=== PATIENT | male | born 1960 | race Caucasian/White ===

== ENCOUNTER 2020-02-17 08:14 | Inpatient (IN) | payer MEDICAID ==
[~2020-02-17] VITALS: Ht 170.2 cm; Wt 66.5 kg
[~2020-02-17 08:14] MED LIST: BARIUM SULFATE/METHYLCELLULOSE 600 ML SUSPENSION BOTTLE**DONT ENTER PO ONE; etomidate 2mg/ml inj. ONE
[2020-02-17] MEDS ORDERED: CefTRIAXone/D5W-Rocephin 1gm 50 ML IV ONE (09:20)
[2020-02-17] MEDS ORDERED: fluconazole 150mg tablet PO ONE (09:20)
[2020-02-17 09:46] LABS: BASOPHILS # (AUTO) 0.1 X10'3 (0-0.2); BASOPHILS % (AUTO) 0.8 % (0-1); EOSINOPHILS # (AUTO) 0.1 X10'3 (0-0.9); EOSINOPHILS % (AUTO) 1.5 % (0-6); HEMOGLOBIN 10.9 g/dl (14.0-17.9); LYMPHOCYTES # (AUTO) 2.1 X10'3 (1.1-4.8); LYMPHOCYTES % (AUTO) 22.4 % (21-51); MEAN CORPUSCULAR HEMOGLOBIN 29.2 PG (27.0-31.0); MEAN CORPUSCULAR HGB CONC 33.1 g/dL (33.0-36.5); MEAN CORPUSCULAR VOLUME 88.3 FL (78-98); MONOCYTES # (AUTO) 0.8 X10'3 (0-0.9); MONOCYTES % (AUTO) 8.5 % (2-12); NEUTROPHILS # (AUTO) 6.3 X10'3 (1.8-7.7); NEUTROPHILS % (AUTO) 66.8 % (42-75); PLATELET COUNT 512 X10'3 (140-440); RED BLOOD COUNT 3.74 X10'6 (4.70-6.10); RED CELL DISTRIBUTION WIDTH 17.1 % (11.5-14.5); WHITE BLOOD COUNT 9.4 X10'3 (4.5-11.0)
[2020-02-17] MEDS ORDERED: HYDROcodone/acetaminophen 10/325mg tab PO ONE (10:00)
[2020-02-17 10:02] LABS: ALANINE AMINOTRANSFERASE 40 U/L (12-78); ALBUMIN 4.2 G/DL (3.4-5.0); ALKALINE PHOSPHATASE 121 IU/L (46-116); ANION GAP 9 (8-16); ASPARTATE AMINO TRANSFERASE 30 U/L (10-37); BILIRUBIN,TOTAL 0.3 MG/DL (0.1-1.0); BLOOD UREA NITROGEN 60 MG/DL (7-18); CALCIUM 10.8 MG/DL (8.5-10.1); CHLORIDE 91 MMOL/L (99-107); GLUCOSE 113 MG/DL (70-104); POTASSIUM 5.2 MMOL/L (3.5-5.1); SODIUM 123 MMOL/L (135-145); TOTAL CARBON DIOXIDE 23.1 MMOL/L (24-32); TOTAL PROTEIN 8.4 G/DL (6.4-8.2); eGFR 35 ML/MIN
[2020-02-17] MEDS: nystatin/triamcinolone cream 15gm TP SCH ×3 (10:10→21:00)
[2020-02-17] MEDS ORDERED: acetaminophen 325mg tablet PO PRN ×2 (11:15)
[2020-02-17] MEDS ORDERED: magnesium 2GM in 50ml NS 50 ML IV PRN (11:15)
[2020-02-17] MEDS ORDERED: HYDROcodone/acetaminophen 5mg/325mg tablet PO PRN (11:15)
[2020-02-17] MEDS ORDERED: magnesium Cl slow-release 64mg tablet PO PRN (11:15)
[2020-02-17] MEDS ORDERED: potassium Cl 20 mEq SR tablet PO PRN ×2 (11:15)
[2020-02-17] MEDS ORDERED: magnesium hydroxide 30ml (MOM) UD suspension PO PRN (11:15)
[2020-02-17] MEDS ORDERED: magnesium 4gm in 100ml NS 100 ML IV PRN (11:15)
[2020-02-17] MEDS ORDERED: potassium CL 10mEq/100ml bag 100 ML IV PRN ×2 (11:15)
[2020-02-17] MEDS ORDERED: morphine 2 MG/ML inj. syringe IV PRN (11:15)
[2020-02-17] MEDS ORDERED: HYDROcodone/acetaminophen 10/325mg tab PO PRN (11:15)
[2020-02-17] MEDS ORDERED: ondansetron/PF 4mg/2ml inj IV PRN (11:15)
[2020-02-17] MEDS ORDERED: bisacodyl 10mg suppository rectal RC PRN (11:15)
[2020-02-17] MEDS ORDERED: mag hydrox/Alum hydrox/simeth 30ml oral suspension PO PRN (11:15)
[2020-02-17] MEDS ORDERED: diphenhydrAMINE 25mg capsule PO PRN (11:15)
[2020-02-17] MEDS ORDERED: acetaminophen 650mg rectal suppository RC PRN (11:15)
[2020-02-17] MEDS: piperacillin/tazo 3.375gm/50ml 50 ML IV SCH ×2 (11:47→16:23)
[2020-02-17] MEDS: normal saline 1000ml 1,000 ML IV SCH ×2 (11:47→20:47)
[2020-02-17 11:52] LABS: HEMOGLOBIN A1C 6.1 % (4.5-6.2)
[2020-02-17] MEDS ORDERED: VITA-268 PO (12:56)
[2020-02-17] MEDS ORDERED: NITR0.4T48 SL (12:56)
[2020-02-17] MEDS ORDERED: CLOP75TA33 PO (12:56)
[2020-02-17] MEDS ORDERED: LISI-604 PO (12:56)
[2020-02-17] MEDS ORDERED: ASPI-107 PO (12:56)
[2020-02-17] MEDS ORDERED: CARV6.253 PO (12:56)
[2020-02-17] MEDS ORDERED: ATOR40TA71 PO (12:56)
[2020-02-17] MEDS ORDERED: OXYC-145 PO (13:11)
[2020-02-17] MEDS ORDERED: MIDO5TAB4 PO (13:11)
--- NOTE | 2020-02-17 13:33 | NUR ---
tried to call report to surgical, rn stated that room wasnt cleaned and they would call back, they said they could not take report until room was cleaned
--- NOTE | 2020-02-17 13:55 | NUR ---
Gave report to Kim Eastman and still waiting for room to be cleaned
--- NOTE | 2020-02-17 14:21 | NUR ---
AJ COMPLETED MED REC
[2020-02-17] MEDS: morphine 2 MG/ML inj. syringe IV PRN ×2 (15:19→20:33)
--- NOTE | 2020-02-17 15:26 | NUR ---
PAGER ID: [phone] MESSAGE: Surgical Braxtonr Geraldo RN ext [phone]. RE: Gualberto Arnold. Patient requesting Dilaudid IV for pain as Morphine don't work well for him. Wound care nurse at bedside asking if we can get Lidocaine topical for wound care
[2020-02-17] MEDS ORDERED: LIDOcaine 4% (40 mg/ml) topical solution 50ml TP PRN (15:30)
[2020-02-17] MEDS: vancomycin/NS 1 GM ADD-VANTAGE 250 ML X 1 DOSE IV SCH (16:23)
[2020-02-17 17:14] VITALS: BP 97/62
--- NOTE | 2020-02-17 18:30 | NUR ---
Patient in room LEAH 347. I have received report from MARK MAYS and had the opportunity to ask questions and assume patient care.
[2020-02-17 20:00] VITALS: BP 143/75
[2020-02-17] MEDS: K and/or MAG REPLACEMENT MC SCH (20:00)
[2020-02-17] MEDS: heparin, porcine 5000 units/ml vial SQ SCH (20:38)
[2020-02-18] VITALS: BP 105/62
[2020-02-18] MEDS: piperacillin/tazo 3.375gm/50ml 50 ML IV SCH ×3 (00:36→16:38)
[2020-02-18] MEDS: normal saline 1000ml 1,000 ML IV SCH ×2 (04:01→16:38)
[2020-02-18] MEDS: morphine 2 MG/ML inj. syringe IV PRN (05:20)
[2020-02-18 06:01] LABS: ALANINE AMINOTRANSFERASE 42 U/L (12-78); ALBUMIN 3.4 G/DL (3.4-5.0); ALBUMIN/GLOBULIN RATIO 0.9 (1.1-1.5); ALKALINE PHOSPHATASE 109 IU/L (46-116); ANION GAP 11 (8-16); ASPARTATE AMINO TRANSFERASE 33 U/L (10-37); BILIRUBIN,TOTAL 0.4 MG/DL (0.1-1.0); BLOOD UREA NITROGEN 46 MG/DL (7-18); CALCIUM 9.9 MG/DL (8.5-10.1); CHLORIDE 97 MMOL/L (99-107); CHOL/HDL RATIO 2.5 (0.00-4.99); CHOLESTEROL 88 MG/DL (0-200); CREATININE 1.64 MG/DL (0.60-1.10); GLUCOSE 92 MG/DL (70-104); HDL CHOLESTEROL 35 MG/DL (35-60); LDL CHOLESTEROL 37 MG/DL (50-100); MAGNESIUM 1.6 MG/DL (1.5-2.4); PHOSPHORUS 4.4 MG/DL (2.3-4.5); SODIUM 129 MMOL/L (135-145); TOTAL CARBON DIOXIDE 21.1 MMOL/L (24-32); TOTAL PROTEIN 7.2 G/DL (6.4-8.2); TRIGLYCERIDES 129 MG/DL (20-135); eGFR 44 ML/MIN
[2020-02-18 06:15] LABS: BASOPHILS # (AUTO) 0.1 X10'3 (0-0.2); EOSINOPHILS # (AUTO) 0.3 X10'3 (0-0.9); EOSINOPHILS % (AUTO) 4.4 % (0-6); HEMATOCRIT 32.5 % (42.0-52.0); HEMOGLOBIN 10.8 g/dl (14.0-17.9); LYMPHOCYTES # (AUTO) 2.6 X10'3 (1.1-4.8); LYMPHOCYTES % (AUTO) 33.8 % (21-51); MEAN CORPUSCULAR HEMOGLOBIN 30.2 PG (27.0-31.0); MEAN CORPUSCULAR HGB CONC 33.4 g/dL (33.0-36.5); MEAN CORPUSCULAR VOLUME 90.2 FL (78-98); MEAN PLATELET VOLUME 7.1 FL (7.4-10.4); MONOCYTES # (AUTO) 0.9 X10'3 (0-0.9); MONOCYTES % (AUTO) 11.4 % (2-12); NEUTROPHILS # (AUTO) 3.7 X10'3 (1.8-7.7); NEUTROPHILS % (AUTO) 49.4 % (42-75); PLATELET COUNT 420 X10'3 (140-440); RED CELL DISTRIBUTION WIDTH 17.7 % (11.5-14.5); WHITE BLOOD COUNT 7.6 X10'3 (4.5-11.0)
--- NOTE | 2020-02-18 06:29 | NUR ---
Problems reprioritized. Patient report given, questions answered & plan of care reviewed with MARK MAYS.
--- NOTE | 2020-02-18 06:32 | NUR ---
Patient in room LEAH 347. I have received report from Prabha MAYS and had the opportunity to ask questions and assume patient care.
[2020-02-18 07:00] VITALS: BP 105/65
--- NOTE | 2020-02-18 07:47 | NUR ---
I called Dr. El to ask if patient can be fed today. Dr. El ordered clear liquid diet and Gastrograffin enema to be done at Radiology department. Radiology staff notified about this, the public address technician and radiologist not be able to do it right away. Radiology staff also advised me to go ahead give patient clear liquid diet as the procedure will be delayed for a while until the tech and radiologist are able to do it. I told patient that the Gastrograffin will not get done immediately as we have to wait for the entry tech and radiology doctor to be available to do it, I offered clear liquid diet for breakfast but patient declined it. Patient states "I would rather wait for the test to get done. Patient expressed frustration over being NPO after midnight and now only allowed to have clear liquid diet instead of solid food.
[2020-02-18] MEDS: K and/or MAG REPLACEMENT MC SCH ×2 (08:00→20:00)
[2020-02-18] MEDS: nystatin/triamcinolone cream 15gm TP SCH ×3 (08:00→21:00)
[2020-02-18] MEDS: heparin, porcine 5000 units/ml vial SQ SCH ×2 (08:54→20:13)
[2020-02-18] MEDS ORDERED: fluconazole 100mg tablet PO SCH (08:55)
[2020-02-18] MEDS ORDERED: oxyCODONE/APAP 5-325mg tablet PO PRN (09:05)
[2020-02-18 09:31] LABS: BURR CELLS 1+; ELLIPTOCYTES FEW
[2020-02-18 09:33] LABS: PLATELET ESTIMATE NORMAL; SCHISTOCYTES FEW
[2020-02-18 09:34] LABS: ANISOCYTOSIS 1+; POIKILOCYTOSIS FEW
[2020-02-18] MEDS ORDERED: pantoprazole 40 MG vial IV ONE ×2 (10:05→21:50)
[2020-02-18] MEDS: oxyCODONE/APAP 10/325mg tablet PO PRN ×2 (10:12→19:35)
[2020-02-18 11:00] VITALS: BP 118/65
[2020-02-18] MEDS: fluconazole 100mg tablet PO SCH (11:27)
[2020-02-18] MEDS ORDERED: diatrozoate meglu/diatrozoate sod (37% iodine) 120ML oral solution ONE (12:00)
[2020-02-18] MEDS: vancomycin/NS 1 GM ADD-VANTAGE 250 ML X 1 DOSE IV SCH (12:51)
[2020-02-18 14:47] VITALS: BP 111/72
[2020-02-18] MEDS: midodrine 5mg tablet PO SCH (16:43)
--- NOTE | 2020-02-18 16:43 | NUR ---
Malnutrition consult: Pt seen at bedside reports UBW 130 lbs with wt loss occurring once ostomy was placed in the beginning of November of this year d/t decreased appetite resulting in poor PO intake secondary to increased pain. Pt states he didn't have sufficient pain control post-op as his pain medications weren't being absorbed. Current documented scaled weight is 113 lbs. This is severe wt loss of 13% in three months. Pt with mild visible bilat temporal wasting. Pt currently meets criteria for malnutrition. Pt provided with malnutrition education with ONS coupons. 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 Pt admit for infection surrounding ostomy, pending possible reversal. Pt inquired about diet following possible reversal. RD provided verbal low fiber nutrition therapy education with a written list of fiber content in food. All of patient's questions were answered at this time. Pt requesting Ensure with meals, d/w RN. Pt expressed anger about meal trays received and having a heart healthy diet order. RD validated patient's concerns and informed pt that diet order is per physician. Patient's concerns were also d/w patient's RN. Pt provided with RD contact information. Will remain available. Recommendations: 1) Continue regular diet 2) Diet change to low fiber post-op if to get ostomy reversal 3) [place] Ensure Enlive TID, dislikes chocolate 4) [place] food preferences: dislikes cream of wheat 5) Bowel care PRN 6) Scaled weights per rx Addendum: 02/18/20 at [address] Amended: Links added.
--- NOTE | 2020-02-18 16:59 | NUR ---
Per patient report, his last drink of alcohol was 1 year ago
[2020-02-18 18:00] VITALS: BP 110/74
[2020-02-18] MEDS: lactose-reduced food (Ensure Enlive) - 237ml bottle PO SCH (18:00)
--- NOTE | 2020-02-18 18:26 | NUR ---
Problems reprioritized. Patient report given, questions answered & plan of care reviewed with Tal MAYS.
--- NOTE | 2020-02-18 18:48 | NUR ---
I have received report from TABATHA Chow and had the opportunity to ask questions and assume patient care.
[2020-02-18] MEDS: carvedilol 6.25mg tablet PO SCH (20:00)
[2020-02-18] MEDS: lactobacillus rhamnosus 10,000 MMU CELLS/CAPSULE PO SCH (20:16)
--- NOTE | 2020-02-18 20:22 | NUR ---
Evening dose of carvedilol not given due to a BP of 92/57.
[2020-02-19] VITALS (15 sets, daily range): BP systolic 80–185; BP diastolic 50–84
[2020-02-19] MEDS: midodrine 5mg tablet PO SCH ×3 (00:16→16:00)
[2020-02-19] MEDS: piperacillin/tazo 3.375gm/50ml 50 ML IV SCH ×3 (00:19→16:39)
[2020-02-19] MEDS: normal saline 1000ml 1,000 ML IV SCH ×3 (02:25→19:33)
[2020-02-19] MEDS: oxyCODONE/APAP 10/325mg tablet PO PRN (02:47)
[2020-02-19 05:56] LABS: BASOPHILS # (AUTO) 0.1 X10'3 (0-0.2); EOSINOPHILS # (AUTO) 0.3 X10'3 (0-0.9); EOSINOPHILS % (AUTO) 4.8 % (0-6); HEMATOCRIT 28.5 % (42.0-52.0); HEMOGLOBIN 9.5 g/dl (14.0-17.9); LYMPHOCYTES # (AUTO) 2.7 X10'3 (1.1-4.8); LYMPHOCYTES % (AUTO) 38.6 % (21-51); MEAN CORPUSCULAR HEMOGLOBIN 30.1 PG (27.0-31.0); MEAN CORPUSCULAR HGB CONC 33.2 g/dL (33.0-36.5); MEAN CORPUSCULAR VOLUME 90.6 FL (78-98); MEAN PLATELET VOLUME 7.2 FL (7.4-10.4); MONOCYTES # (AUTO) 0.9 X10'3 (0-0.9); MONOCYTES % (AUTO) 13.2 % (2-12); NEUTROPHILS # (AUTO) 2.9 X10'3 (1.8-7.7); NEUTROPHILS % (AUTO) 42.4 % (42-75); PLATELET COUNT 397 X10'3 (140-440); RED BLOOD COUNT 3.15 X10'6 (4.70-6.10); RED CELL DISTRIBUTION WIDTH 16.8 % (11.5-14.5); WHITE BLOOD COUNT 6.9 X10'3 (4.5-11.0)
--- NOTE | 2020-02-19 05:56 | NUR ---
I agree with Ynes Corbett [facility] LEE student documentation, and assessment.
--- NOTE | 2020-02-19 06:30 | NUR ---
Patient in room LEAH 344. I have received report from Tal MAYS/Aric ROMERO and had the opportunity to ask questions and assume patient care.
--- NOTE | 2020-02-19 06:31 | NUR ---
Problems reprioritized. Patient report given, questions answered & plan of care reviewed with TABATHA Daiz.
[2020-02-19 06:33] LABS: ALANINE AMINOTRANSFERASE 35 U/L (12-78); ALBUMIN/GLOBULIN RATIO 0.9 (1.1-1.5); ALKALINE PHOSPHATASE 101 IU/L (46-116); ANION GAP 10 (8-16); ASPARTATE AMINO TRANSFERASE 26 U/L (10-37); BILIRUBIN,TOTAL 0.2 MG/DL (0.1-1.0); BLOOD UREA NITROGEN 27 MG/DL (7-18); BUN/CREATININE RATIO 16.5 (5.4-32.0); CALCIUM 9.3 MG/DL (8.5-10.1); CHLORIDE 104 MMOL/L (99-107); CREATININE 1.64 MG/DL (0.60-1.10); GLUCOSE 121 MG/DL (70-104); MAGNESIUM 1.4 MG/DL (1.5-2.4); PHOSPHORUS 3.3 MG/DL (2.3-4.5); POTASSIUM 4.1 MMOL/L (3.5-5.1); SODIUM 134 MMOL/L (135-145); TOTAL CARBON DIOXIDE 20.4 MMOL/L (24-32); TOTAL PROTEIN 6.5 G/DL (6.4-8.2); eGFR 44 ML/MIN
--- NOTE | 2020-02-19 06:34 | NUR ---
Report given with LEE Corbett to TABATHA Diaz.
[2020-02-19] MEDS: pantoprazole 40 MG vial IV SCH ×2 (08:00→09:42)
[2020-02-19] MEDS: K and/or MAG REPLACEMENT MC SCH ×2 (08:00→20:00)
[2020-02-19] MEDS: clopidogrel 75mg tablet PO SCH (08:00)
[2020-02-19] MEDS: heparin, porcine 5000 units/ml vial SQ SCH ×2 (08:00→21:42)
[2020-02-19] MEDS: carvedilol 6.25mg tablet PO SCH ×2 (08:00→21:41)
[2020-02-19] MEDS: aspirin 81mg tablet.DR PO SCH (08:00)
[2020-02-19] MEDS: lisinopril 5mg tablet PO SCH (08:00)
[2020-02-19] MEDS: lactose-reduced food (Ensure Enlive) - 237ml bottle PO SCH ×3 (08:21→19:45)
[2020-02-19] MEDS ORDERED: HYDROmorphone inj. 0.5 MG/0.5 ML DISP.SYRIN IM ONE (09:20)
[2020-02-19] MEDS: lactobacillus rhamnosus 10,000 MMU CELLS/CAPSULE PO SCH ×2 (09:40→21:41)
[2020-02-19] MEDS: vitamin B comp w/Vit. C tab 1 TAB TABLET PO SCH (09:40)
[2020-02-19] MEDS: atorvastatin 20mg tablet PO SCH (09:41)
[2020-02-19] MEDS ORDERED: HYDROmorphone inj. 0.5 MG/0.5 ML DISP.SYRIN IV ONE (09:45)
[2020-02-19] MEDS: fluconazole 100mg tablet PO SCH (09:49)
[2020-02-19] MEDS: nystatin/triamcinolone cream 15gm TP SCH ×3 (09:51→21:00)
[2020-02-19] MEDS: vancomycin/NS 1 GM ADD-VANTAGE 250 ML X 1 DOSE IV SCH (12:00)
[2020-02-19] MEDS: ringers solution, lacted 1,000 ML IV SCH ×2 (12:34→16:44)
[2020-02-19] MEDS ORDERED: ondansetron/PF 4mg/2ml inj IV PRN (12:35)
[2020-02-19] MEDS ORDERED: morphine 4 MG/ML inj SYRINge IV PRN (12:35)
[2020-02-19] MEDS ORDERED: proCHLORperazine 10 MG/2 ml inj IV PRN (12:35)
[2020-02-19] MEDS ORDERED: meperidine/PF 25mg/ml syringe IV PRN ×2 (12:35)
[2020-02-19] MEDS ORDERED: morphine 2 MG/ML inj. syringe IV PRN (12:35)
[2020-02-19] MEDS ORDERED: midazolam 2 mg/2 ml injection ONE ×3 (12:49→18:30)
[2020-02-19] MEDS ORDERED: fentaNYL /PF 50mcg/ml 5ml ampule ONE (12:49)
[2020-02-19] MEDS ORDERED: propofol inj 20 ML IV ONE (12:49)
[2020-02-19] MEDS ORDERED: rocuronium 10mg/ml inj IV ONE ×2 (12:50→17:53)
[2020-02-19] MEDS ORDERED: sevoflurane 250ml liquid IH ONE (12:54)
--- NOTE | 2020-02-19 12:54 | NUR ---
CALLED REPORT TO RECOVERY AND SENDING VANCO DOWN RIGHT NOW
[2020-02-19] MEDS ORDERED: neostigmine methylsulfate 1 MG/ML 10ml vial ONE (14:21)
[2020-02-19] MEDS ORDERED: glycopyrrolate 0.2mg/ml inj ONE (14:22)
--- NOTE | 2020-02-19 14:24 | NUR ---
Received from OR via SURGICAL BED , accompanied by Anesthesiologist ATIF and report given by Anesthesiolgist. PATIENT WITH LARGE ABDOMINAL DRESSING THAT IS CDI. MEDICATED FOR PAIN UPON ARRIVAL. VSS. PINEDA CATHETER PRESENT AND IS WITH CLEAR YELLOW URINE. SCDS DONNED. 10L MASK ON WITH 100% SATURATIONS. Addendum: 02/19/20 at 1438 by Carlos Rashid RN, RN Amended: Links added.
[2020-02-19] MEDS: meperidine/PF 25mg/ml syringe IV PRN ×2 (14:45→15:04)
[2020-02-19] MEDS ORDERED: naloxone 0.4 mg/ml inj IV PRN (14:50)
[2020-02-19] MEDS ORDERED: CADD PCA waste documentation MC PRN (14:50)
[2020-02-19] MEDS: HYDROmorphone/NS 1 mg/ml CADD 50 ML IV SCH ×5 (15:17→23:00)
--- NOTE | 2020-02-19 15:34 | NUR ---
ALL CRITERIA FOR TRANSFER TO THE FLOOR HAS BEEN ACHIEVED. REPORT GIVEN AND ALL QUESTIONS ANSWERED, VSS. BED LOW 2 RAILS UP, CALL LIGHT PRESENT AND PATIENT HOOKED UP TO ALL LINES AND VSS. PATIENTS RN PRESENT TO ACCEPT CARE. ABDOMINAL DRESSING IS CDI. RN SURINDER PRESENT TO ACCEPT CARE. LABELED DENTURE CUP WITH SINGLE DENTURE PLACED AT BEDSIDE. PATIENT NGT PLACED ON LOW CONTINOUS SUCTION. BP IN 80'S SYSTOLICALLY. NOTIFIED MD SRIVASTAVA THAT PATIENT DRESSING IS CDI. NO S/S OF HEMORRHAGE OR LEAKAGE FROM DRESSING . AWARE THAT PATIENT HAS OCCASIONAL HYPOTENSIVE EPISODES AND IS AWARE OF CURRENT BP AND APPROVES TRANSFER TO THE SURGICAL FLOOR AT THIS TIME. RN SURINDER TO ADMINISTER MEDICATION DUE AT 1600 FOR HYPOTENSION. Addendum: 02/19/20 at 1551 by Carlos Armstrong - TABATHA RN Amended: Links added.
--- NOTE | 2020-02-19 15:45 | NUR ---
Patient in room ICU 2037. I have received report from ELEONORA MAYS and had the opportunity to ask questions and assume patient care.
[2020-02-19] MEDS ORDERED: normal saline 1000ml 1,000 ML IV ONE (16:55)
[2020-02-19] MEDS ORDERED: normal saline 1000ml 1,000 ML IVB ONE (17:08)
[2020-02-19 17:16] LABS: MEAN CORPUSCULAR HEMOGLOBIN 29.1 PG (27.0-31.0); MEAN CORPUSCULAR HGB CONC 31.9 g/dL (33.0-36.5); MEAN CORPUSCULAR VOLUME 91.2 FL (78-98); MEAN PLATELET VOLUME 6.8 FL (7.4-10.4); PLATELET COUNT 350 X10'3 (140-440); RED BLOOD COUNT 2.14 X10'6 (4.70-6.10); WHITE BLOOD COUNT 17.7 X10'3 (4.5-11.0)
[2020-02-19 17:18] LABS: HEMATOCRIT 19.6 % (42.0-52.0)
[2020-02-19 17:19] LABS: HEMOGLOBIN 6.2 g/dl (14.0-17.9)
[2020-02-19 17:21] LABS: ABG BASE EXCESS -9.7 mmol/L (-2.0-2.0); ABG HCO3 16.1 mmol/L (22.0-26.0); ABG PCO2 (T) 34.7 mmHg (35.0-48.0); ABG PO2 (T) 165.7 mmHg (75.0-100.0); ALLEN'S TEST POSITIVE; FCOHb 0.3 % (0.0-3.9); FLOW 4 L/min; FMetHb 0.1 % (0.0-1.5); FO2Hb 98.6 % (94-97); TOTAL HEMOGLOBIN 6.1 G/dl (14.0-18.0)
--- NOTE | 2020-02-19 17:30 | NUR ---
PATIENT RETURNED FROM FROM RECOVERY PATIENT HAD LOW BP BUT NOT OUT OF HIS NORM, BUT PATIENT WAS SLIGHTLY TACHY AN THE 110'S. PATIENT WAS PALE BUT STABLE. AT ABOUT 1655 PHYSICIAN WAS NOTIFIED THAT PATIENT BP DROPPED TO 70'2/40'S AND TACHY IN 140'S PATIENT WAS BOLUSED AND RAPID WAS CALLED. PATIENT TRANSFER TO [facility] [address] HUBER. HOSPITALIST NOTIFIED, AND SURGEON WAS IN ICU UPON ARRIVAL.
[2020-02-19] MEDS ORDERED: vasopressin 40 UNIT in NS 40ml IV DRIP IV SCH (17:35)
[2020-02-19] MEDS: vasopressin inj. 40 UNIT in normal saline 50ml IV soln 38 ML IV SCH (17:36)
[2020-02-19] MEDS ORDERED: midazolam 100mg in NS 100ml 100 ML IV PRN (18:55)
[2020-02-19 19:13] LABS: BASOPHILS % (AUTO) 0.1 % (0-1); EOSINOPHILS % (AUTO) 0.1 % (0-6); HEMATOCRIT 30.9 % (42.0-52.0); HEMOGLOBIN 10.3 g/dl (14.0-17.9); LYMPHOCYTES # (AUTO) 0.8 X10'3 (1.1-4.8); LYMPHOCYTES % (AUTO) 5.5 % (21-51); MEAN CORPUSCULAR HEMOGLOBIN 30.7 PG (27.0-31.0); MEAN CORPUSCULAR HGB CONC 33.2 g/dL (33.0-36.5); MEAN CORPUSCULAR VOLUME 92.4 FL (78-98); MEAN PLATELET VOLUME 6.9 FL (7.4-10.4); MONOCYTES # (AUTO) 1.2 X10'3 (0-0.9); MONOCYTES % (AUTO) 8.7 % (2-12); NEUTROPHILS # (AUTO) 11.9 X10'3 (1.8-7.7); NEUTROPHILS % (AUTO) 85.6 % (42-75); PLATELET COUNT 238 X10'3 (140-440); RED BLOOD COUNT 3.34 X10'6 (4.70-6.10); RED CELL DISTRIBUTION WIDTH 16.3 % (11.5-14.5); WHITE BLOOD COUNT 13.8 X10'3 (4.5-11.0)
--- NOTE | 2020-02-19 19:20 | NUR ---
Received pt from OR to room 2007. report received from Judy MCCULLOUGH and was able to ask questions. Pt placed on CICU monitors, art line zeroed with good waveform, meds infusing through introducer line and PIV. Dressing to abdomen clean, dry, and intact.
[2020-02-19 19:23] LABS: ALANINE AMINOTRANSFERASE 26 U/L (12-78); ALBUMIN 2.3 G/DL (3.4-5.0); ALKALINE PHOSPHATASE 58 IU/L (46-116); ANION GAP 9 (8-16); ASPARTATE AMINO TRANSFERASE 31 U/L (10-37); BILIRUBIN,TOTAL 0.5 MG/DL (0.1-1.0); BLOOD UREA NITROGEN 19 MG/DL (7-18); BUN/CREATININE RATIO 16.2 (5.4-32.0); CALCIUM 7.5 MG/DL (8.5-10.1); CHLORIDE 110 MMOL/L (99-107); CREATININE 1.17 MG/DL (0.60-1.10); GLUCOSE 198 MG/DL (70-104); PHOSPHORUS 3.4 MG/DL (2.3-4.5); SODIUM 137 MMOL/L (135-145); TOTAL CARBON DIOXIDE 18.3 MMOL/L (24-32); TOTAL PROTEIN 4.6 G/DL (6.4-8.2); eGFR 64 ML/MIN
[2020-02-19 19:24] LABS: PARTIAL THROMBOPLASTIN TIME 29 SECONDS (22-32)
[2020-02-19 19:26] LABS: ABG BASE EXCESS -10.2 mmol/L (-2.0-2.0); ABG HCO3 15.9 mmol/L (22.0-26.0); ABG OXYGEN SATURATION 99.3 % (94-97); ABG PCO2 (T) 32.2 mmHg (35.0-48.0); ABG PO2 (T) 361.6 mmHg (75.0-100.0); FCOHb 0.3 % (0.0-3.9); FMetHb 0.2 % (0.0-1.5); FO2Hb 98.8 % (94-97); PATIENT TEMPERATURE 34.6; PEEP 5 cm H2O; RESPIRATORY RATE 12 b/min; TIDAL VOLUME 500 mL; TOTAL HEMOGLOBIN 11.4 G/dl (14.0-18.0)
[2020-02-19 19:33] LABS: POTASSIUM 4.4 MMOL/L (3.5-5.1)
[2020-02-19 19:36] LABS: MAGNESIUM 0.9 MG/DL (1.5-2.4)
[2020-02-19] MEDS: FENTANYL-0.9 % NACL/PF 100 ML IV PRN (19:36)
[2020-02-19] MEDS ORDERED: ipratropium/albuterol 3ml nebule NEB PRN (21:00)
[2020-02-20] VITALS (24 sets, daily range): BP systolic 92–180; BP diastolic 42–78
[2020-02-20] MEDS: midodrine 5mg tablet PO SCH ×3 (00:17→16:00)
[2020-02-20] MEDS: piperacillin/tazo 3.375gm/50ml 50 ML IV SCH ×3 (00:18→16:44)
[2020-02-20] MEDS: HYDROmorphone/NS 1 mg/ml CADD 50 ML IV SCH ×10 (01:00→23:00)
[2020-02-20 03:29] LABS: BASOPHILS % (AUTO) 0.1 % (0-1); EOSINOPHILS % (AUTO) 0.1 % (0-6); HEMOGLOBIN 9.8 g/dl (14.0-17.9); LYMPHOCYTES # (AUTO) 1.2 X10'3 (1.1-4.8); LYMPHOCYTES % (AUTO) 9.8 % (21-51); MEAN CORPUSCULAR HEMOGLOBIN 30.3 PG (27.0-31.0); MEAN CORPUSCULAR HGB CONC 33.9 g/dL (33.0-36.5); MEAN CORPUSCULAR VOLUME 89.4 FL (78-98); MEAN PLATELET VOLUME 7.6 FL (7.4-10.4); MONOCYTES # (AUTO) 1.5 X10'3 (0-0.9); MONOCYTES % (AUTO) 12.7 % (2-12); NEUTROPHILS # (AUTO) 9.3 X10'3 (1.8-7.7); NEUTROPHILS % (AUTO) 77.3 % (42-75); PLATELET COUNT 239 X10'3 (140-440); RED BLOOD COUNT 3.24 X10'6 (4.70-6.10)
[2020-02-20 03:39] LABS: ALANINE AMINOTRANSFERASE 24 U/L (12-78); ALBUMIN 2.4 G/DL (3.4-5.0); ALKALINE PHOSPHATASE 53 IU/L (46-116); ANION GAP 11 (8-16); ASPARTATE AMINO TRANSFERASE 24 U/L (10-37); BILIRUBIN,TOTAL 1.9 MG/DL (0.1-1.0); BLOOD UREA NITROGEN 20 MG/DL (7-18); BUN/CREATININE RATIO 16.9 (5.4-32.0); CALCIUM 7.9 MG/DL (8.5-10.1); CHLORIDE 111 MMOL/L (99-107); CREATININE 1.18 MG/DL (0.60-1.10); GLUCOSE 125 MG/DL (70-104); MAGNESIUM 3.1 MG/DL (1.5-2.4); PHOSPHORUS 2.9 MG/DL (2.3-4.5); POTASSIUM 3.8 MMOL/L (3.5-5.1); SODIUM 140 MMOL/L (135-145); TOTAL CARBON DIOXIDE 17.6 MMOL/L (24-32); TOTAL PROTEIN 4.9 G/DL (6.4-8.2); eGFR 64 ML/MIN
[2020-02-20 03:45] LABS: ABG BASE EXCESS -8.6 mmol/L (-2.0-2.0); ABG HCO3 16.3 mmol/L (22.0-26.0); ABG OXYGEN SATURATION 96.1 % (94-97); ABG PCO2 (T) 32.2 mmHg (35.0-48.0); ABG PO2 (T) 90.5 mmHg (75.0-100.0); FCOHb 0.7 % (0.0-3.9); FMetHb 0.3 % (0.0-1.5); FO2Hb 95.1 % (94-97); PATIENT TEMPERATURE 37.5; PEEP 5 cm H2O; RESPIRATORY RATE 14 b/min; TIDAL VOLUME 500 mL; TOTAL HEMOGLOBIN 10.1 G/dl (14.0-18.0)
[2020-02-20] MEDS: FENTANYL-0.9 % NACL/PF 100 ML IV PRN (06:26)
--- NOTE | 2020-02-20 06:39 | NUR ---
Problems reprioritized. Patient report given, questions answered & plan of care reviewed with Bruce MAYS.
[2020-02-20] MEDS: pantoprazole 40 MG vial IV SCH ×2 (07:10→07:29)
[2020-02-20] MEDS: lisinopril 5mg tablet PO SCH (07:29)
[2020-02-20] MEDS: carvedilol 6.25mg tablet PO SCH ×2 (07:29→19:20)
[2020-02-20] MEDS: atorvastatin 20mg tablet PO SCH (07:29)
[2020-02-20] MEDS: lactobacillus rhamnosus 10,000 MMU CELLS/CAPSULE PO SCH ×2 (07:29→19:20)
[2020-02-20] MEDS: lactose-reduced food (Ensure Enlive) - 237ml bottle PO SCH ×3 (07:30→18:00)
[2020-02-20] MEDS: clopidogrel 75mg tablet PO SCH (07:30)
[2020-02-20] MEDS: aspirin 81mg tablet.DR PO SCH (07:30)
[2020-02-20] MEDS: K and/or MAG REPLACEMENT MC SCH ×2 (07:30→20:00)
[2020-02-20] MEDS: vitamin B comp w/Vit. C tab 1 TAB TABLET PO SCH (07:30)
[2020-02-20] MEDS: nystatin/triamcinolone cream 15gm TP SCH ×3 (07:31→21:00)
[2020-02-20] MEDS: heparin, porcine 5000 units/ml vial SQ SCH ×2 (10:35→19:20)
[2020-02-20] MEDS ORDERED: VANCOMYCIN LEVEL IV ONE (11:30)
[2020-02-20] MEDS ORDERED: racepinephrine 11.25mg/0.5ml nebule NEB PRN (11:50)
[2020-02-20] MEDS ORDERED: ipratropium/albuterol 3ml nebule NEB PRN (11:50)
[2020-02-20] MEDS ORDERED: naloxone 0.4 mg/ml inj IV PRN (11:50)
--- NOTE | 2020-02-20 12:00 | NUR ---
Patient extubated per MD orders. Patient tolerated well on 2L NC
[2020-02-20] MEDS: normal saline 1000ml 1,000 ML IV SCH (13:47)
[2020-02-20] MEDS: vancomycin/NS 1 GM ADD-VANTAGE 250 ML X 1 DOSE IV SCH (13:58)
[2020-02-20] MEDS: ipratropium/albuterol 3ml nebule NEB SCH ×2 (15:22→20:55)
--- NOTE | 2020-02-20 15:31 | NUR ---
RT AT BEDSIDE TO ASK RT INITIAL EVALUATION QUESTIONS, PT REFUSED TO ANSWER QUESTIONS AND DIRECTED ME TO ASK EVERYONE ELSE THAT HAS ASKED HIM ABOUT HIS SMOKING HISTORY. UNABLE TO COMPLETE RT INITIAL EVAL. Addendum: 02/20/20 at 1534 by Preeti Alford RT Amended: Links added.
[2020-02-21] VITALS (30 sets, daily range): BP systolic 115–144; BP diastolic 60–87
[2020-02-21] MEDS: piperacillin/tazo 3.375gm/50ml 50 ML IV SCH ×3 (00:34→16:52)
[2020-02-21] MEDS: HYDROmorphone/NS 1 mg/ml CADD 50 ML IV SCH ×13 (01:00→23:00)
[2020-02-21] MEDS: mineral oil/petrolatum ophthal oint EACHEYE SCH ×3 (01:52→14:00)
[2020-02-21] MEDS: normal saline 1000ml 1,000 ML IV SCH ×3 (03:00→14:18)
[2020-02-21] MEDS: ipratropium/albuterol 3ml nebule NEB SCH ×4 (03:05→20:15)
[2020-02-21 03:13] LABS: BASOPHILS % (AUTO) 0.2 % (0-1); EOSINOPHILS # (AUTO) 0.1 X10'3 (0-0.9); EOSINOPHILS % (AUTO) 0.6 % (0-6); HEMOGLOBIN 7.3 g/dl (14.0-17.9); LYMPHOCYTES # (AUTO) 1.4 X10'3 (1.1-4.8); LYMPHOCYTES % (AUTO) 12.2 % (21-51); MEAN CORPUSCULAR HGB CONC 33.7 g/dL (33.0-36.5); MEAN CORPUSCULAR VOLUME 89.1 FL (78-98); MEAN PLATELET VOLUME 7.5 FL (7.4-10.4); MONOCYTES # (AUTO) 1.9 X10'3 (0-0.9); MONOCYTES % (AUTO) 17.3 % (2-12); NEUTROPHILS # (AUTO) 7.8 X10'3 (1.8-7.7); NEUTROPHILS % (AUTO) 69.7 % (42-75); PLATELET COUNT 205 X10'3 (140-440); RED BLOOD COUNT 2.45 X10'6 (4.70-6.10); RED CELL DISTRIBUTION WIDTH 17.2 % (11.5-14.5); WHITE BLOOD COUNT 11.2 X10'3 (4.5-11.0)
[2020-02-21 03:20] LABS: HEMATOCRIT 21.8 % (42.0-52.0)
[2020-02-21 03:43] LABS: ALANINE AMINOTRANSFERASE 17 U/L (12-78); ALBUMIN/GLOBULIN RATIO 0.7 (1.1-1.5); ALKALINE PHOSPHATASE 48 IU/L (46-116); ANION GAP 9 (8-16); ASPARTATE AMINO TRANSFERASE 20 U/L (10-37); BILIRUBIN,TOTAL 0.7 MG/DL (0.1-1.0); BLOOD UREA NITROGEN 14 MG/DL (7-18); BUN/CREATININE RATIO 11.3 (5.4-32.0); CALCIUM 8.1 MG/DL (8.5-10.1); CHLORIDE 116 MMOL/L (99-107); CREATININE 1.24 MG/DL (0.60-1.10); GLUCOSE 108 MG/DL (70-104); MAGNESIUM 1.9 MG/DL (1.5-2.4); POTASSIUM 3.4 MMOL/L (3.5-5.1); SODIUM 144 MMOL/L (135-145); TOTAL CARBON DIOXIDE 18.8 MMOL/L (24-32); TOTAL PROTEIN 4.8 G/DL (6.4-8.2); eGFR 60 ML/MIN
[2020-02-21 04:06] LABS: BASOPHILS % (AUTO) 0.3 % (0-1); EOSINOPHILS # (AUTO) 0.1 X10'3 (0-0.9); EOSINOPHILS % (AUTO) 0.5 % (0-6); HEMATOCRIT 22.2 % (42.0-52.0); HEMOGLOBIN 7.5 g/dl (14.0-17.9); LYMPHOCYTES # (AUTO) 1.6 X10'3 (1.1-4.8); LYMPHOCYTES % (AUTO) 12.9 % (21-51); MEAN CORPUSCULAR HEMOGLOBIN 30.1 PG (27.0-31.0); MEAN CORPUSCULAR HGB CONC 33.7 g/dL (33.0-36.5); MEAN CORPUSCULAR VOLUME 89.4 FL (78-98); MEAN PLATELET VOLUME 7.4 FL (7.4-10.4); MONOCYTES # (AUTO) 1.9 X10'3 (0-0.9); MONOCYTES % (AUTO) 15.5 % (2-12); NEUTROPHILS # (AUTO) 8.6 X10'3 (1.8-7.7); NEUTROPHILS % (AUTO) 70.8 % (42-75); PLATELET COUNT 211 X10'3 (140-440); RED BLOOD COUNT 2.48 X10'6 (4.70-6.10); RED CELL DISTRIBUTION WIDTH 17.4 % (11.5-14.5); WHITE BLOOD COUNT 12.1 X10'3 (4.5-11.0)
--- NOTE | 2020-02-21 04:21 | NUR ---
Contacted HAKEEM Hudson regarding decreased H & H. Patient condition stable VVS. patients abd dressing dry and intact. Will repeat labs in AM per PA.
[2020-02-21] MEDS: VANCOMYCIN 750MG IV in NS 250 ML IV SCH ×2 (04:26→15:46)
--- NOTE | 2020-02-21 06:46 | NUR ---
Patient in room CICU 2007. I have received report from TABATHA Kirby and had the opportunity to ask questions and assume patient care.
[2020-02-21] MEDS: nystatin/triamcinolone cream 15gm TP SCH ×3 (08:00→21:00)
[2020-02-21] MEDS: pantoprazole 40 MG vial IV SCH ×2 (08:00→08:40)
[2020-02-21] MEDS: lactose-reduced food (Ensure Enlive) - 237ml bottle PO SCH ×3 (08:00→17:21)
[2020-02-21] MEDS: vitamin B comp w/Vit. C tab 1 TAB TABLET PO SCH (08:38)
[2020-02-21] MEDS: midodrine 5mg tablet PO SCH ×3 (08:38→15:46)
[2020-02-21] MEDS: atorvastatin 20mg tablet PO SCH (08:38)
[2020-02-21] MEDS: aspirin 81mg tablet.DR PO SCH (08:39)
[2020-02-21] MEDS: carvedilol 6.25mg tablet PO SCH ×2 (08:39→20:00)
[2020-02-21] MEDS: clopidogrel 75mg tablet PO SCH (08:39)
[2020-02-21] MEDS: lisinopril 5mg tablet PO SCH (08:39)
[2020-02-21] MEDS: heparin, porcine 5000 units/ml vial SQ SCH ×2 (08:40→20:00)
[2020-02-21] MEDS: K and/or MAG REPLACEMENT MC SCH ×2 (08:40→20:00)
[2020-02-21] MEDS: lactobacillus rhamnosus 10,000 MMU CELLS/CAPSULE PO SCH ×2 (08:41→20:00)
--- NOTE | 2020-02-21 09:00 | NUR ---
Critical Hgb 7.0 and Hct 21.0. New orders from Dr. El to infuse 2 units of blood. Will continue to monitor.
[2020-02-21 09:26] LABS: MEAN CORPUSCULAR HGB CONC 33.4 g/dL (33.0-36.5); MEAN CORPUSCULAR VOLUME 89.7 FL (78-98); MEAN PLATELET VOLUME 7.4 FL (7.4-10.4); PLATELET COUNT 201 X10'3 (140-440); RED BLOOD COUNT 2.34 X10'6 (4.70-6.10); RED CELL DISTRIBUTION WIDTH 17.3 % (11.5-14.5); WHITE BLOOD COUNT 11.4 X10'3 (4.5-11.0)
--- NOTE | 2020-02-21 12:03 | NUR ---
Fabián Consult: Fabián 11 w/ abdomen surgical wound. Pt s/p ileostomy reversal and return to OR for post-op hemorrhage per MD. Remains NPO at this time w/ R NG to suction 150ml output noted. 350ml ostomy output 02/18 pre-op. Hx heavy etoh at least a quart daily causing surgical complications on November admit per MS note; receiving B/C vitamin complex post-op. Will monitor for PO diet advancement and additional protein needs post-op. Recommendations: 1) advance diet as medically indicated to low-residue post-op 2) once PO diet advancement; [place] Ensure Enlive TID, dislikes chocolate 3) [place] food preferences once PO: dislikes cream of wheat 4) Bowel care PRN 5) weekly wts Addendum: 02/21/20 at [address] Amended: Links added.
[2020-02-21 17:16] LABS: HEMATOCRIT 27.8 % (42.0-52.0); HEMOGLOBIN 9.5 g/dl (14.0-17.9); MEAN CORPUSCULAR HEMOGLOBIN 30.7 PG (27.0-31.0); MEAN CORPUSCULAR HGB CONC 34.2 g/dL (33.0-36.5); MEAN CORPUSCULAR VOLUME 89.9 FL (78-98); MEAN PLATELET VOLUME 7.3 FL (7.4-10.4); PLATELET COUNT 180 X10'3 (140-440); RED BLOOD COUNT 3.09 X10'6 (4.70-6.10); RED CELL DISTRIBUTION WIDTH 16.3 % (11.5-14.5); WHITE BLOOD COUNT 12.6 X10'3 (4.5-11.0)
[2020-02-21] MEDS: vasopressin inj. 40 UNIT in normal saline 50ml IV soln 38 ML IV SCH (17:20)
[2020-02-22] VITALS (23 sets, daily range): BP systolic 97–149; BP diastolic 62–89
[2020-02-22] MEDS: piperacillin/tazo 3.375gm/50ml 50 ML IV SCH ×3 (00:03→16:25)
[2020-02-22] MEDS: midodrine 5mg tablet PO SCH ×2 (00:03→08:00)
[2020-02-22] MEDS: HYDROmorphone/NS 1 mg/ml CADD 50 ML IV SCH ×12 (01:00→23:00)
[2020-02-22] MEDS: normal saline 1000ml 1,000 ML IV SCH ×3 (01:11→14:36)
[2020-02-22] MEDS: ipratropium/albuterol 3ml nebule NEB SCH ×4 (03:00→20:16)
[2020-02-22] MEDS: VANCOMYCIN 750MG IV in NS 250 ML IV SCH ×2 (04:00→16:25)
[2020-02-22 05:32] LABS: BASOPHILS % (AUTO) 0.2 % (0-1); EOSINOPHILS % (AUTO) 0.1 % (0-6); HEMATOCRIT 27.2 % (42.0-52.0); HEMOGLOBIN 9.3 g/dl (14.0-17.9); LYMPHOCYTES # (AUTO) 1.4 X10'3 (1.1-4.8); LYMPHOCYTES % (AUTO) 12.9 % (21-51); MEAN CORPUSCULAR HEMOGLOBIN 30.5 PG (27.0-31.0); MEAN CORPUSCULAR HGB CONC 34.1 g/dL (33.0-36.5); MEAN CORPUSCULAR VOLUME 89.5 FL (78-98); MEAN PLATELET VOLUME 7.8 FL (7.4-10.4); MONOCYTES # (AUTO) 1.4 X10'3 (0-0.9); MONOCYTES % (AUTO) 12.9 % (2-12); NEUTROPHILS # (AUTO) 8.2 X10'3 (1.8-7.7); NEUTROPHILS % (AUTO) 73.9 % (42-75); PLATELET COUNT 185 X10'3 (140-440); RED BLOOD COUNT 3.04 X10'6 (4.70-6.10); RED CELL DISTRIBUTION WIDTH 16.5 % (11.5-14.5); WHITE BLOOD COUNT 11.1 X10'3 (4.5-11.0)
[2020-02-22 06:09] LABS: ALANINE AMINOTRANSFERASE 18 U/L (12-78); ALBUMIN 2.1 G/DL (3.4-5.0); ALBUMIN/GLOBULIN RATIO 0.7 (1.1-1.5); ALKALINE PHOSPHATASE 72 IU/L (46-116); ANION GAP 13 (8-16); ASPARTATE AMINO TRANSFERASE 25 U/L (10-37); BILIRUBIN,TOTAL 1.3 MG/DL (0.1-1.0); BLOOD UREA NITROGEN 12 MG/DL (7-18); CHLORIDE 116 MMOL/L (99-107); GLUCOSE 93 MG/DL (70-104); MAGNESIUM 1.7 MG/DL (1.5-2.4); POTASSIUM 3.1 MMOL/L (3.5-5.1); SODIUM 148 MMOL/L (135-145); TOTAL CARBON DIOXIDE 18.6 MMOL/L (24-32); TOTAL PROTEIN 5.3 G/DL (6.4-8.2); eGFR 62 ML/MIN
[2020-02-22] MEDS ORDERED: potassium Cl 20 mEq SR tablet PO PRN ×2 (06:55)
[2020-02-22] MEDS: potassium Cl 20mEq/100mL bag 100 ML IV PRN ×2 (07:21→09:48)
[2020-02-22] MEDS: pantoprazole 40 MG vial IV SCH ×2 (07:59→08:00)
[2020-02-22] MEDS: carvedilol 6.25mg tablet PO SCH ×2 (08:00→19:54)
[2020-02-22] MEDS: vitamin B comp w/Vit. C tab 1 TAB TABLET PO SCH (08:00)
[2020-02-22] MEDS: lactobacillus rhamnosus 10,000 MMU CELLS/CAPSULE PO SCH ×2 (08:00→19:54)
[2020-02-22] MEDS: K and/or MAG REPLACEMENT MC SCH ×3 (08:00→19:59)
[2020-02-22] MEDS: aspirin 81mg tablet.DR PO SCH (08:00)
[2020-02-22] MEDS: atorvastatin 20mg tablet PO SCH (08:00)
[2020-02-22] MEDS: lactose-reduced food (Ensure Enlive) - 237ml bottle PO SCH (08:00)
[2020-02-22] MEDS: lisinopril 5mg tablet PO SCH (08:00)
[2020-02-22] MEDS: clopidogrel 75mg tablet PO SCH (08:00)
[2020-02-22] MEDS: nystatin/triamcinolone cream 15gm TP SCH ×3 (08:00→21:57)
[2020-02-22] MEDS: heparin, porcine 5000 units/ml vial SQ SCH ×2 (08:01→19:53)
[2020-02-22] MEDS ORDERED: VANCOMYCIN LEVEL IV ONE (15:30)
[2020-02-22] MEDS: diatr meglu/diatrizoate 30ml oral sol.-(3 dose) bottle PO SCH (21:57)
[2020-02-23] VITALS (23 sets, daily range): BP systolic 119–149; BP diastolic 69–96
[2020-02-23] MEDS: piperacillin/tazo 3.375gm/50ml 50 ML IV SCH ×4 (00:25→23:53)
[2020-02-23] MEDS: HYDROmorphone/NS 1 mg/ml CADD 50 ML IV SCH ×11 (01:00→23:00)
[2020-02-23 02:58] LABS: BASOPHILS % (AUTO) 0.2 % (0-1); EOSINOPHILS % (AUTO) 0.2 % (0-6); HEMATOCRIT 27.4 % (42.0-52.0); HEMOGLOBIN 9.2 g/dl (14.0-17.9); LYMPHOCYTES # (AUTO) 1.2 X10'3 (1.1-4.8); LYMPHOCYTES % (AUTO) 10.1 % (21-51); MEAN CORPUSCULAR HEMOGLOBIN 30.3 PG (27.0-31.0); MEAN CORPUSCULAR HGB CONC 33.5 g/dL (33.0-36.5); MEAN CORPUSCULAR VOLUME 90.6 FL (78-98); MEAN PLATELET VOLUME 7.8 FL (7.4-10.4); MONOCYTES # (AUTO) 1.3 X10'3 (0-0.9); MONOCYTES % (AUTO) 11.3 % (2-12); NEUTROPHILS # (AUTO) 9.2 X10'3 (1.8-7.7); NEUTROPHILS % (AUTO) 78.2 % (42-75); PLATELET COUNT 209 X10'3 (140-440); RED BLOOD COUNT 3.03 X10'6 (4.70-6.10); RED CELL DISTRIBUTION WIDTH 17.1 % (11.5-14.5); WHITE BLOOD COUNT 11.7 X10'3 (4.5-11.0)
[2020-02-23] MEDS: ipratropium/albuterol 3ml nebule NEB SCH ×4 (03:00→21:04)
[2020-02-23 03:10] LABS: ALANINE AMINOTRANSFERASE 15 U/L (12-78); ALBUMIN/GLOBULIN RATIO 0.6 (1.1-1.5); ALKALINE PHOSPHATASE 79 IU/L (46-116); ANION GAP 13 (8-16); ASPARTATE AMINO TRANSFERASE 18 U/L (10-37); BLOOD UREA NITROGEN 14 MG/DL (7-18); CALCIUM 8.8 MG/DL (8.5-10.1); CHLORIDE 119 MMOL/L (99-107); CREATININE 1.27 MG/DL (0.60-1.10); GLUCOSE 93 MG/DL (70-104); MAGNESIUM 1.6 MG/DL (1.5-2.4); POTASSIUM 3.2 MMOL/L (3.5-5.1); SODIUM 151 MMOL/L (135-145); TOTAL CARBON DIOXIDE 18.9 MMOL/L (24-32); TOTAL PROTEIN 5.4 G/DL (6.4-8.2); eGFR 58 ML/MIN
[2020-02-23] MEDS: vancomycin inj 500 MG in normal saline 100ml IV soln 100 ML IV SCH ×2 (03:58→16:29)
[2020-02-23] MEDS: lactobacillus rhamnosus 10,000 MMU CELLS/CAPSULE PO SCH ×2 (08:00→19:53)
[2020-02-23] MEDS: carvedilol 6.25mg tablet PO SCH ×2 (08:00→19:53)
[2020-02-23] MEDS: atorvastatin 20mg tablet PO SCH (08:00)
[2020-02-23] MEDS: aspirin 81mg tablet.DR PO SCH (08:00)
[2020-02-23] MEDS: clopidogrel 75mg tablet PO SCH (08:00)
[2020-02-23] MEDS: vitamin B comp w/Vit. C tab 1 TAB TABLET PO SCH (08:00)
[2020-02-23] MEDS: lisinopril 5mg tablet PO SCH (08:00)
[2020-02-23] MEDS: pantoprazole 40 MG vial IV SCH (08:00)
[2020-02-23] MEDS: K and/or MAG REPLACEMENT MC SCH ×3 (08:00→19:52)
[2020-02-23] MEDS: nystatin/triamcinolone cream 15gm TP SCH ×3 (08:42→19:53)
[2020-02-23] MEDS: diatr meglu/diatrizoate 30ml oral sol.-(3 dose) bottle PO SCH ×2 (08:42→12:06)
[2020-02-23] MEDS: heparin, porcine 5000 units/ml vial SQ SCH ×2 (08:43→19:53)
[2020-02-23] MEDS: sodium bicarbonate (8.4%) inj. 50 MEQ in dextrose 5%-water 1,000 ML IV SCH ×2 (09:15→19:51)
[2020-02-23] MEDS: potassium Cl 20mEq/100mL bag 100 ML IV PRN ×4 (10:10→21:20)
--- NOTE | 2020-02-23 12:39 | NUR ---
TPN consult: Pt pending PICC placement at this time. TPN recommendations below have been d/w clinical pharmacist. Pt with ileus, pt pending f/u CT today per physician notes. Pt documented with 2L out from NG tube 02/21 per I&O. D/w recommendation for routine Thiamine, Folic acid, and MVI given recent EtOH hx however MD declines at this time. Will continue to follow closely. Recommendations: 1) Continuous 3:1 Clinimix-E / 2L bag with 100 mL 20% intralipids with goal rate of 75 mL/hr to provide: 1800 mL total volume/day, 1679 kcal, 86 g AA, 343 g dextrose (dext load 4.64 mg/kg/min), and 17 g lipids (10% of kcal) 2) Prealbumin and TG q Saturday/ 3) Daily weights 4) Advance diet as medically indicated to low-residue 5) Once PO diet advancement; [place] Ensure Enlive TID, dislikes chocolate 6) [place] food preferences once PO: dislikes cream of wheat 7) Bowel care PRN Addendum: 02/23/20 at [address] Amended: Links added.
[2020-02-23] MEDS ORDERED: Dextrose 10%-water IV solution 1,000 ML IV PRN (13:44)
--- NOTE | 2020-02-23 15:30 | NUR ---
Received call from radiologist, stating that she needed to speak with MD regarding critical CT results. This nurse gave Dr. El' and Dr. Schmitz's phone numbers.
--- NOTE | 2020-02-23 16:06 | NUR ---
[facility] LINE INFORMATION: REF: [id number] LOT: [id number] EXP: 10/14/2020
[2020-02-23 18:01] LABS: ALANINE AMINOTRANSFERASE 13 U/L (12-78); ALBUMIN 1.8 G/DL (3.4-5.0); ALBUMIN/GLOBULIN RATIO 0.6 (1.1-1.5); ALKALINE PHOSPHATASE 80 IU/L (46-116); ANION GAP 11 (8-16); ASPARTATE AMINO TRANSFERASE 14 U/L (10-37); BILIRUBIN,TOTAL 0.8 MG/DL (0.1-1.0); BLOOD UREA NITROGEN 13 MG/DL (7-18); BUN/CREATININE RATIO 9.8 (5.4-32.0); CALCIUM 8.1 MG/DL (8.5-10.1); CHLORIDE 111 MMOL/L (99-107); CREATININE 1.33 MG/DL (0.60-1.10); GLUCOSE 416 MG/DL (70-104); MAGNESIUM 1.4 MG/DL (1.5-2.4); PHOSPHORUS 2.1 MG/DL (2.3-4.5); POTASSIUM 3.2 MMOL/L (3.5-5.1); PREALBUMIN 13.1 MG/DL (19-36); SODIUM 143 MMOL/L (135-145); TOTAL CARBON DIOXIDE 21.3 MMOL/L (24-32); TOTAL PROTEIN 4.9 G/DL (6.4-8.2); TRIGLYCERIDES 85 MG/DL (20-135); eGFR 55 ML/MIN
--- NOTE | 2020-02-23 18:30 | NUR ---
Patient in room CICU 2007. I have received report from Valarie MAYS and had the opportunity to ask questions and assume patient care.
[2020-02-23] MEDS: magnesium 2GM in 50ml NS 50 ML IV PRN (19:56)
[2020-02-23] MEDS ORDERED: fat emulsion 20% IV 100 ML, MVI, adult No.4 with vit. K 10 ML, Trace element-5 inj. 1 M... IV SCH ×4 (20:00)
[2020-02-24] VITALS (17 sets, daily range): BP systolic 122–144; BP diastolic 68–83
[2020-02-24] MEDS: HYDROmorphone/NS 1 mg/ml CADD 50 ML IV SCH ×12 (01:00→23:00)
[2020-02-24] MEDS: ipratropium/albuterol 3ml nebule NEB SCH ×4 (03:00→19:48)
[2020-02-24 03:25] LABS: BASOPHILS % (AUTO) 0.3 % (0-1); EOSINOPHILS # (AUTO) 0.2 X10'3 (0-0.9); EOSINOPHILS % (AUTO) 2.5 % (0-6); HEMATOCRIT 26.7 % (42.0-52.0); LYMPHOCYTES # (AUTO) 1.5 X10'3 (1.1-4.8); LYMPHOCYTES % (AUTO) 15.1 % (21-51); MEAN CORPUSCULAR HEMOGLOBIN 30.7 PG (27.0-31.0); MEAN CORPUSCULAR HGB CONC 33.7 g/dL (33.0-36.5); MEAN PLATELET VOLUME 7.9 FL (7.4-10.4); MONOCYTES # (AUTO) 1.2 X10'3 (0-0.9); MONOCYTES % (AUTO) 12.1 % (2-12); NEUTROPHILS # (AUTO) 6.9 X10'3 (1.8-7.7); PLATELET COUNT 215 X10'3 (140-440); RED BLOOD COUNT 2.94 X10'6 (4.70-6.10); RED CELL DISTRIBUTION WIDTH 16.9 % (11.5-14.5); WHITE BLOOD COUNT 9.8 X10'3 (4.5-11.0)
[2020-02-24] MEDS: vancomycin inj 500 MG in normal saline 100ml IV soln 100 ML IV SCH ×2 (03:48→17:24)
[2020-02-24 03:56] LABS: ALANINE AMINOTRANSFERASE 14 U/L (12-78); ALBUMIN 1.9 G/DL (3.4-5.0); ALBUMIN/GLOBULIN RATIO 0.6 (1.1-1.5); ALKALINE PHOSPHATASE 73 IU/L (46-116); ANION GAP 9 (8-16); ASPARTATE AMINO TRANSFERASE 14 U/L (10-37); BILIRUBIN,TOTAL 0.7 MG/DL (0.1-1.0); BLOOD UREA NITROGEN 15 MG/DL (7-18); BUN/CREATININE RATIO 13.3 (5.4-32.0); CALCIUM 8.4 MG/DL (8.5-10.1); CHLORIDE 116 MMOL/L (99-107); CREATININE 1.13 MG/DL (0.60-1.10); GLUCOSE 186 MG/DL (70-104); MAGNESIUM 1.9 MG/DL (1.5-2.4); PHOSPHORUS 1.6 MG/DL (2.3-4.5); POTASSIUM 3.4 MMOL/L (3.5-5.1); SODIUM 148 MMOL/L (135-145); TOTAL CARBON DIOXIDE 23.5 MMOL/L (24-32); TOTAL PROTEIN 5.2 G/DL (6.4-8.2); eGFR 67 ML/MIN
[2020-02-24] MEDS: potassium Cl 20mEq/100mL bag 100 ML IV PRN ×2 (04:59→05:56)
--- NOTE | 2020-02-24 06:30 | NUR ---
Problems reprioritized. Patient report given, questions answered & plan of care reviewed with Valarie MAYS.
[2020-02-24] MEDS: nystatin/triamcinolone cream 15gm TP SCH ×3 (08:00→21:00)
[2020-02-24] MEDS: K and/or MAG REPLACEMENT MC SCH ×2 (08:00)
[2020-02-24] MEDS: sodium bicarbonate (8.4%) inj. 50 MEQ in dextrose 5%-water 1,000 ML IV SCH ×2 (08:19→18:47)
[2020-02-24] MEDS: piperacillin/tazo 3.375gm/50ml 50 ML IV SCH ×3 (08:19→23:56)
[2020-02-24] MEDS: pantoprazole 40 MG vial IV SCH (08:19)
[2020-02-24] MEDS: aspirin 81mg tablet.DR PO SCH (08:20)
[2020-02-24] MEDS: clopidogrel 75mg tablet PO SCH (08:20)
[2020-02-24] MEDS: atorvastatin 20mg tablet PO SCH (08:20)
[2020-02-24] MEDS: vitamin B comp w/Vit. C tab 1 TAB TABLET PO SCH (08:20)
[2020-02-24] MEDS: carvedilol 6.25mg tablet PO SCH ×2 (08:20→20:55)
[2020-02-24] MEDS: lisinopril 5mg tablet PO SCH (08:20)
[2020-02-24] MEDS: lactobacillus rhamnosus 10,000 MMU CELLS/CAPSULE PO SCH ×2 (08:20→20:55)
[2020-02-24] MEDS: heparin, porcine 5000 units/ml vial SQ SCH ×2 (08:21→20:50)
--- NOTE | 2020-02-24 12:50 | NUR ---
Report received from Valarie MAYS ICU. Awaiting pt's arrival to med/surg.
--- NOTE | 2020-02-24 12:50 | NUR ---
Called report to Carissa on Surgical unit. All questions and concerns addressed.
[2020-02-24] MEDS ORDERED: sodium phosphate in D5W IVPB 250 ML IV ONE (13:50)
[2020-02-24] MEDS ORDERED: sodium phosphate inj. 15 MMOL in dextrose 5%-water 250 ML IV ONE (14:00)
--- NOTE | 2020-02-24 15:25 | NUR ---
Pt arrived from ICU via w/c, accompanied by Valarie MAYS. Pt assessed. Agree with 0800 assessment entry except no EKG findings on Med/Surg. BLL, SRupx2, call light in reach, pt oriented to room, frequent rounding, pt close to nurses station. PICC line to SIGIFREDO and PIV to RFA patent infusing fluids per MD orders. F/C patent draining clear yellow urine. Addendum: 02/24/20 at 2018 by Ana Salmeron RN Pt dressing to lower abdomen, midline incision, CDI with small amt of dried serosanguinous drainage to lower aspect of dressing.
[2020-02-24] MEDS ORDERED: VANCOMYCIN LEVEL IV ONE (15:30)
--- NOTE | 2020-02-24 18:08 | NUR ---
Message from Pharmacy : Sodium phos is compatible with zosyn and the dilaudid. Please hang the vanco first since it is time sensitive. Then you can hang the sodium phos along with the zosyn. Thank you, pharmacy [phone]
--- NOTE | 2020-02-24 18:30 | NUR ---
Problems reprioritized. Patient report given, questions answered & plan of care reviewed with Berna Mccormick RN.
[2020-02-24] MEDS: CADD PCA waste documentation MC PRN (21:27)
[2020-02-24] MEDS: fat emulsion 20% IV 100 ML, MVI, adult No.4 with vit. K 10 ML, Trace element-5 inj. 1 M... IV SCH ×4 (23:56)
[2020-02-25] VITALS: BP 137/82
[2020-02-25] MEDS: HYDROmorphone/NS 1 mg/ml CADD 50 ML IV SCH ×12 (01:00→23:00)
[2020-02-25] MEDS: sodium bicarbonate (8.4%) inj. 50 MEQ in dextrose 5%-water 1,000 ML IV SCH ×2 (01:35→07:32)
[2020-02-25] MEDS ORDERED: VANCOMYCIN LEVEL IV ONE (03:30)
[2020-02-25] MEDS: vancomycin inj 500 MG in normal saline 100ml IV soln 100 ML IV SCH ×2 (03:44→15:54)
[2020-02-25] MEDS: ipratropium/albuterol 3ml nebule NEB SCH ×4 (03:57→20:26)
[2020-02-25 04:05] LABS: BASOPHILS % (AUTO) 0.5 % (0-1); EOSINOPHILS # (AUTO) 0.5 X10'3 (0-0.9); EOSINOPHILS % (AUTO) 5.2 % (0-6); HEMOGLOBIN 8.4 g/dl (14.0-17.9); LYMPHOCYTES # (AUTO) 1.8 X10'3 (1.1-4.8); LYMPHOCYTES % (AUTO) 20.2 % (21-51); MEAN CORPUSCULAR HEMOGLOBIN 30.8 PG (27.0-31.0); MEAN CORPUSCULAR HGB CONC 33.7 g/dL (33.0-36.5); MEAN CORPUSCULAR VOLUME 91.3 FL (78-98); MEAN PLATELET VOLUME 8.5 FL (7.4-10.4); MONOCYTES # (AUTO) 1.2 X10'3 (0-0.9); MONOCYTES % (AUTO) 13.2 % (2-12); NEUTROPHILS # (AUTO) 5.6 X10'3 (1.8-7.7); NEUTROPHILS % (AUTO) 60.9 % (42-75); PLATELET COUNT 199 X10'3 (140-440); RED BLOOD COUNT 2.74 X10'6 (4.70-6.10); RED CELL DISTRIBUTION WIDTH 16.3 % (11.5-14.5); WHITE BLOOD COUNT 9.1 X10'3 (4.5-11.0)
[2020-02-25 04:20] LABS: ALANINE AMINOTRANSFERASE 15 U/L (12-78); ALBUMIN 1.8 G/DL (3.4-5.0); ALBUMIN/GLOBULIN RATIO 0.6 (1.1-1.5); ALKALINE PHOSPHATASE 76 IU/L (46-116); ANION GAP 7 (8-16); ASPARTATE AMINO TRANSFERASE 15 U/L (10-37); BILIRUBIN,TOTAL 0.6 MG/DL (0.1-1.0); BLOOD UREA NITROGEN 18 MG/DL (7-18); BUN/CREATININE RATIO 18.4 (5.4-32.0); CALCIUM 8.1 MG/DL (8.5-10.1); CHLORIDE 108 MMOL/L (99-107); CREATININE 0.98 MG/DL (0.60-1.10); GLUCOSE 142 MG/DL (70-104); MAGNESIUM 1.4 MG/DL (1.5-2.4); PHOSPHORUS 4.2 MG/DL (2.3-4.5); PREALBUMIN 13.7 MG/DL (19-36); SODIUM 143 MMOL/L (135-145); TOTAL CARBON DIOXIDE 27.7 MMOL/L (24-32); VANCOMYCIN,TROUGH 17.9 UG/ML (6.0-14.0); eGFR 79 ML/MIN
--- NOTE | 2020-02-25 06:21 | NUR ---
Problems reprioritized. Patient report given, questions answered & plan of care reviewed with TABATHA Mcguire.
[2020-02-25] MEDS: piperacillin/tazo 3.375gm/50ml 50 ML IV SCH ×2 (07:43→17:08)
[2020-02-25] MEDS: pantoprazole 40 MG vial IV SCH (07:46)
[2020-02-25] MEDS: lactobacillus rhamnosus 10,000 MMU CELLS/CAPSULE PO SCH ×2 (07:49→19:44)
[2020-02-25] MEDS: aspirin 81mg tablet.DR PO SCH (07:49)
[2020-02-25] MEDS: carvedilol 6.25mg tablet PO SCH ×2 (07:49→19:44)
[2020-02-25] MEDS: atorvastatin 20mg tablet PO SCH (07:49)
[2020-02-25] MEDS: clopidogrel 75mg tablet PO SCH (07:49)
[2020-02-25] MEDS: lisinopril 5mg tablet PO SCH (07:49)
[2020-02-25] MEDS: heparin, porcine 5000 units/ml vial SQ SCH ×2 (07:50→19:45)
[2020-02-25] MEDS: magnesium Cl slow-release 64mg tablet PO PRN ×2 (07:50→19:44)
[2020-02-25] MEDS: vitamin B comp w/Vit. C tab 1 TAB TABLET PO SCH (07:50)
[2020-02-25 08:00] VITALS: BP 128/78
[2020-02-25] MEDS: lactose-reduced food (Ensure Enlive) - 237ml bottle PO SCH ×3 (08:00→18:00)
[2020-02-25] MEDS: nystatin/triamcinolone cream 15gm TP SCH ×3 (08:02→21:00)
[2020-02-25 11:00] VITALS: BP 130/81
--- NOTE | 2020-02-25 12:48 | NUR ---
PATIENT IS AWARE OF HIS CRITICAL POTASSIUM LEVEL. HE REFUSES TO TAKE HIS 2ND DOSE OF 40MEQ K-DUR. SAYS HE WILL "TRY LATER". I WILL KEEP ATTEMPTING TO GIVE THIS MEDICATION TO PATIENT AND CONTINUE TEACHING HIM THE IMPORTANCE OF CORRECTING HIS ELECTROLYTE LEVEL.
--- NOTE | 2020-02-25 13:45 | NUR ---
Brianna MONTAÑO 349B : DO YOU HAVE TIME TO PUT A PIV IN THIS PATIENT. VERY HARD STICK, I BELIEVE YOU'VE DONE ALL HIS IV'S THANKS.
[2020-02-25] MEDS: potassium CL 10mEq/100ml bag 100 ML IV PRN ×4 (15:54→20:33)
--- NOTE | 2020-02-25 18:25 | NUR ---
Problems reprioritized. Patient report given, questions answered & plan of care reviewed with TABATHA PLATA.
[2020-02-25 19:00] VITALS: BP 120/80
[2020-02-25] MEDS: fat emulsion 20% IV 100 ML, MVI, adult No.4 with vit. K 10 ML, Trace element-5 inj. 1 M... IV SCH ×4 (21:38)
[2020-02-26] MEDS: piperacillin/tazo 3.375gm/50ml 50 ML IV SCH ×3 (00:09→16:51)
[2020-02-26] MEDS: HYDROmorphone/NS 1 mg/ml CADD 50 ML IV SCH ×12 (01:00→22:13)
[2020-02-26] MEDS ORDERED: normal saline 1000ml 1,000 ML IV SCH (01:15)
[2020-02-26] MEDS: ipratropium/albuterol 3ml nebule NEB SCH ×4 (03:21→20:21)
[2020-02-26 03:51] LABS: MAGNESIUM 1.4 MG/DL (1.5-2.4); POTASSIUM 3.7 MMOL/L (3.5-5.1)
[2020-02-26] MEDS: vancomycin inj 500 MG in normal saline 100ml IV soln 100 ML IV SCH ×2 (04:08→15:48)
--- NOTE | 2020-02-26 06:31 | NUR ---
Problems reprioritized. Patient report given, questions answered & plan of care reviewed with Angeli MAYS. Addendum: 02/26/20 at 0631 by Suma Aguayo RN Amended: Links added.
--- NOTE | 2020-02-26 06:31 | NUR ---
Patient in room LEAH 349. I have received report from TABATHA Moise and had the opportunity to ask questions and assume patient care.
[2020-02-26 07:00] VITALS: BP 143/77
[2020-02-26] MEDS: atorvastatin 20mg tablet PO SCH (07:16)
[2020-02-26] MEDS: lactobacillus rhamnosus 10,000 MMU CELLS/CAPSULE PO SCH ×2 (07:16→19:58)
[2020-02-26] MEDS: pantoprazole 40 MG vial IV SCH (07:16)
[2020-02-26] MEDS: clopidogrel 75mg tablet PO SCH (07:16)
[2020-02-26] MEDS: aspirin 81mg tablet.DR PO SCH (07:16)
[2020-02-26] MEDS: vitamin B comp w/Vit. C tab 1 TAB TABLET PO SCH (07:16)
[2020-02-26] MEDS: heparin, porcine 5000 units/ml vial SQ SCH ×2 (07:17→19:58)
[2020-02-26] MEDS: carvedilol 6.25mg tablet PO SCH ×2 (07:17→19:58)
[2020-02-26] MEDS: lisinopril 5mg tablet PO SCH (07:17)
[2020-02-26] MEDS: lactose-reduced food (Ensure Enlive) - 237ml bottle PO SCH ×3 (07:28→18:00)
[2020-02-26] MEDS: nystatin/triamcinolone cream 15gm TP SCH ×3 (08:00→21:00)
[2020-02-26] MEDS: magnesium 4gm in 100ml NS 100 ML IV PRN (10:55)
[2020-02-26 11:38] VITALS: BP 146/86
--- NOTE | 2020-02-26 13:57 | NUR ---
Reassessment: Pt remains NPO with nutrient needs being met with TPN. NG tube in place documented with 350 mL output 02/24. LBM 02/25 documented as moderate and diarrhea following previously with no BM since 02/17 and s/p ileostomy reversal 02/18. No changes in nutrition intervention at this time. Will continue to follow closely. Recommendations: 1) Continuous 3:1 Clinimix-E / 2L bag with 100 mL 20% intralipids with goal rate of 75 mL/hr to provide: 1800 mL total volume/day, 1679 kcal, 86 g AA, 343 g dextrose (dext load 4.64 mg/kg/min), and 17 g lipids (10% of kcal) 2) Prealbumin and TG q Saturday/ 3) Daily weights 4) Advance diet as medically indicated to low-residue 5) Once PO diet advancement; [place] Ensure Enlive TID, dislikes chocolate 6) [place] food preferences once PO: dislikes cream of wheat 7) Bowel care PRN Addendum: 02/26/20 at [address] Amended: Links added.
[2020-02-26] MEDS: magnesium 2GM in 50ml NS 50 ML IV PRN (15:07)
--- NOTE | 2020-02-26 15:45 | NUR ---
NG tube clamped at 1530 today, [place] Catheter also removed at 1530. patient tolerated well.
[2020-02-26 18:00] VITALS: BP 139/86
--- NOTE | 2020-02-26 18:38 | NUR ---
Problems reprioritized. Patient report given, questions answered & plan of care reviewed with TERESA Maharaj RN.
--- NOTE | 2020-02-26 18:45 | NUR ---
Patient in room LEAH 349. I have received report from TABATHA Crawford and had the opportunity to ask questions and assume patient care. Addendum: 02/26/20 at 1845 by Preeti Howell RN Amended: Links added.
--- NOTE | 2020-02-26 19:28 | NUR ---
PICC nurse came to see patient's swollen RUE and stated to monitor for the rest of the night for now
--- NOTE | 2020-02-26 21:35 | NUR ---
pulled out patient's NG tube and tolerated well, no noted residue prior to removing it.
[2020-02-26] MEDS: CADD PCA waste documentation MC PRN (21:56)
[2020-02-26] MEDS: fat emulsion 20% IV 100 ML, MVI, adult No.4 with vit. K 10 ML, Trace element-5 inj. 1 M... IV SCH ×4 (22:17)
[2020-02-27] VITALS (7 sets, daily range): BP systolic 113–162; BP diastolic 50–93
[2020-02-27] MEDS: piperacillin/tazo 3.375gm/50ml 50 ML IV SCH ×2 (00:13→08:27)
[2020-02-27] MEDS: HYDROmorphone/NS 1 mg/ml CADD 50 ML IV SCH ×4 (01:00→07:00)
[2020-02-27] MEDS: ipratropium/albuterol 3ml nebule NEB SCH ×4 (02:55→19:55)
--- NOTE | 2020-02-27 03:12 | NUR ---
noted with some dark brown blood on patient while trying to have a BM, already had an episode during the day and was seen by the hospitalist
[2020-02-27] MEDS: vancomycin inj 500 MG in normal saline 100ml IV soln 100 ML IV SCH (04:23)
[2020-02-27 05:11] LABS: MAGNESIUM 2.1 MG/DL (1.5-2.4); POTASSIUM 3.4 MMOL/L (3.5-5.1)
--- NOTE | 2020-02-27 06:25 | NUR ---
Patient in room LEAH 349. I have received report from Berna Sheth RN and had the opportunity to ask questions and assume patient care.
--- NOTE | 2020-02-27 06:38 | NUR ---
Problems reprioritized. Patient report given, questions answered & plan of care reviewed with TABATHA Clark.
[2020-02-27] MEDS ORDERED: potassium Cl 20 mEq SR tablet PO PRN (07:05)
[2020-02-27] MEDS: nystatin/triamcinolone cream 15gm TP SCH (08:00)
[2020-02-27] MEDS: lactose-reduced food (Ensure Enlive) - 237ml bottle PO SCH ×3 (08:00→18:00)
[2020-02-27] MEDS: vitamin B comp w/Vit. C tab 1 TAB TABLET PO SCH (08:27)
[2020-02-27] MEDS: carvedilol 6.25mg tablet PO SCH ×2 (08:27→21:07)
[2020-02-27] MEDS: lactobacillus rhamnosus 10,000 MMU CELLS/CAPSULE PO SCH ×2 (08:27→21:07)
[2020-02-27] MEDS: clopidogrel 75mg tablet PO SCH (08:27)
[2020-02-27] MEDS: lisinopril 5mg tablet PO SCH (08:27)
[2020-02-27] MEDS: pantoprazole 40 MG vial IV SCH (08:27)
[2020-02-27] MEDS: aspirin 81mg tablet.DR PO SCH (08:27)
[2020-02-27] MEDS: oxyCODONE/APAP 10/325mg tablet PO PRN ×2 (08:28→15:50)
[2020-02-27] MEDS: heparin, porcine 5000 units/ml vial SQ SCH (08:28)
[2020-02-27] MEDS: atorvastatin 20mg tablet PO SCH (08:28)
[2020-02-27] MEDS: CADD PCA waste documentation MC PRN (08:51)
--- NOTE | 2020-02-27 10:55 | NUR ---
BLOOD SUGAR CHECK: 101
--- NOTE | 2020-02-27 11:17 | NUR ---
Patient in room LEAH 349. I have received report from EDGARDO MAYS and had the opportunity to ask questions and assume patient care.
[2020-02-27] MEDS: apixaban 5mg tablet PO SCH ×2 (12:09→21:06)
--- NOTE | 2020-02-27 12:15 | NUR ---
Pt transferred to PCU via hospital bed
[2020-02-27] MEDS: potassium Cl 20 mEq SR tablet PO PRN ×2 (13:05→17:22)
--- NOTE | 2020-02-27 18:14 | NUR ---
Patient in room PCU 3023. I have received report from TABATHA Clark and had the opportunity to ask questions and assume patient care.
--- NOTE | 2020-02-27 18:25 | NUR ---
Problems reprioritized. Patient report given, questions answered & plan of care reviewed with TABATHA Fay.
[2020-02-28] VITALS (7 sets, daily range): BP systolic 90–144; BP diastolic 30–68
--- NOTE | 2020-02-28 03:18 | NUR ---
Sent to for; to (do) Centers MESSAGE: room 3026 Gualberto Arnold: Can you please call me regarding this patient. Extensive hx, Thank you, Nya [phone]
[2020-02-28] MEDS: oxyCODONE/APAP 10/325mg tablet PO PRN ×2 (03:47→10:01)
[2020-02-28] MEDS: ipratropium/albuterol 3ml nebule NEB SCH ×4 (03:56→20:34)
--- NOTE | 2020-02-28 06:16 | NUR ---
Patient in room PCU 3021. I have received report from TABATHA Sweeney and had the opportunity to ask questions and assume patient care.
--- NOTE | 2020-02-28 06:52 | NUR ---
Patient in room PCU 3021. I have received report from TABATHA Fay and had the opportunity to ask questions and assume patient care.
[2020-02-28] MEDS: lactose-reduced food (Ensure Enlive) - 237ml bottle PO SCH ×3 (08:00→18:24)
--- NOTE | 2020-02-28 08:12 | NUR ---
PAGER ID: [phone] MESSAGE: Patient Clayton Gonzalez1. Pt has no IV, can I switch to PO for his Protonix? Thanks, Zahra Lynda [phone]
[2020-02-28] MEDS: vitamin B comp w/Vit. C tab 1 TAB TABLET PO SCH (08:19)
[2020-02-28] MEDS: clopidogrel 75mg tablet PO SCH (08:19)
[2020-02-28] MEDS: lisinopril 5mg tablet PO SCH (08:20)
[2020-02-28] MEDS: atorvastatin 20mg tablet PO SCH (08:21)
[2020-02-28] MEDS: aspirin 81mg tablet.DR PO SCH (08:21)
[2020-02-28] MEDS: lactobacillus rhamnosus 10,000 MMU CELLS/CAPSULE PO SCH ×2 (08:21→21:01)
[2020-02-28] MEDS: carvedilol 6.25mg tablet PO SCH ×2 (08:21→20:00)
[2020-02-28] MEDS: apixaban 5mg tablet PO SCH ×2 (08:22→21:01)
[2020-02-28] MEDS: amox tr/potassium clavulanate 875/125mg TAB PO SCH ×3 (08:40→17:37)
[2020-02-28] MEDS: ondansetron 4mg rapidly disintigrating tab PO PRN ×2 (08:40→10:01)
[2020-02-28] MEDS: potassium Cl 20 mEq SR tablet PO PRN ×3 (08:40→17:37)
[2020-02-28 08:41] LABS: BASOPHILS # (AUTO) 0.1 X10'3 (0-0.2); BASOPHILS % (AUTO) 0.5 % (0-1); EOSINOPHILS # (AUTO) 0.1 X10'3 (0-0.9); HEMATOCRIT 30.4 % (42.0-52.0); HEMOGLOBIN 10.3 g/dl (14.0-17.9); LYMPHOCYTES # (AUTO) 1.7 X10'3 (1.1-4.8); LYMPHOCYTES % (AUTO) 15.6 % (21-51); MEAN CORPUSCULAR HEMOGLOBIN 31.2 PG (27.0-31.0); MEAN CORPUSCULAR HGB CONC 33.9 g/dL (33.0-36.5); MEAN CORPUSCULAR VOLUME 92.2 FL (78-98); MEAN PLATELET VOLUME 8.7 FL (7.4-10.4); MONOCYTES # (AUTO) 1.6 X10'3 (0-0.9); MONOCYTES % (AUTO) 14.8 % (2-12); NEUTROPHILS # (AUTO) 7.2 X10'3 (1.8-7.7); NEUTROPHILS % (AUTO) 68.1 % (42-75); PLATELET COUNT 376 X10'3 (140-440); RED CELL DISTRIBUTION WIDTH 16.9 % (11.5-14.5); WHITE BLOOD COUNT 10.6 X10'3 (4.5-11.0)
[2020-02-28] MEDS: pantoprazole 40mg Tablet.DR PO SCH ×2 (08:41→10:01)
[2020-02-28 08:59] LABS: ALANINE AMINOTRANSFERASE 31 U/L (12-78); ALBUMIN/GLOBULIN RATIO 0.5 (1.1-1.5); ALKALINE PHOSPHATASE 282 IU/L (46-116); ANION GAP 8 (8-16); ASPARTATE AMINO TRANSFERASE 44 U/L (10-37); BILIRUBIN,TOTAL 0.8 MG/DL (0.1-1.0); BLOOD UREA NITROGEN 19 MG/DL (7-18); BUN/CREATININE RATIO 14.1 (5.4-32.0); CALCIUM 9.1 MG/DL (8.5-10.1); CHLORIDE 106 MMOL/L (99-107); CREATININE 1.35 MG/DL (0.60-1.10); GLUCOSE 96 MG/DL (70-104); POTASSIUM 3.4 MMOL/L (3.5-5.1); SODIUM 142 MMOL/L (135-145); TOTAL CARBON DIOXIDE 28.2 MMOL/L (24-32); TOTAL PROTEIN 5.9 G/DL (6.4-8.2); eGFR 54 ML/MIN
--- NOTE | 2020-02-28 14:52 | NUR ---
F/u (02/27): Pt advanced to regular diet and TPN now off. PO ~25% first PO meals since TPN started though is requesting strawberry ensure enlives w/ meals since PO once more. Dietary notified. LBM 02/27 copious per EMR though small per MD note. Will continue to monitor for additional protein/kcal needs post-op. Recommendations: 1) Advance diet as medically indicated to low-residue 2) [place] Ensure Enlive TID, dislikes chocolate 3) [place] food preferences once PO: dislikes cream of wheat 4) Bowel care per rx; if copious diarrhea consider anti-diarrheal post-op 5) weekly wts Addendum: 02/28/20 at [address] Amended: Links added.
--- NOTE | 2020-02-28 15:18 | NUR ---
Problems reprioritized. Patient report given, questions answered & plan of care reviewed with TABATHA Melchor.
--- NOTE | 2020-02-28 15:32 | NUR ---
Report received from Zahra MAYS. Introduced self to patient. Patient alert, oriented x 4, not in distress and comfortable at this time.
[2020-02-28 15:46] LABS: ABG BASE EXCESS -10.9 mmol/L (-2.0-2.0); ABG HCO3 14.1 mmol/L (22.0-26.0); ABG OXYGEN SATURATION 92.1 % (94-97); ABG PCO2 (T) 28.2 mmHg (35.0-48.0); ABG PO2 (T) 71.8 mmHg (75.0-100.0); FCOHb 0.6 % (0.0-3.9); FMetHb 0.2 % (0.0-1.5); FO2Hb 91.4 % (94-97); RESPIRATORY RATE 121 b/min; TOTAL HEMOGLOBIN 8.7 G/dl (14.0-18.0)
--- NOTE | 2020-02-28 18:30 | NUR ---
Patient in room PCU 3021. I have received report from TABATHA Barahona and had the opportunity to ask questions and assume patient care.
--- NOTE | 2020-02-28 18:56 | NUR ---
Problems reprioritized. Patient report given, questions answered & plan of care reviewed with Berna Duenas RN.
[2020-02-29] MEDS ORDERED: morphine 2 MG/ML inj. syringe IM ONE (01:15)
--- NOTE | 2020-02-29 01:15 | NUR ---
c/o severe pain; declining Hye, wants something quicker acting, paged, order received for one time Morphine 2mg IM.
[2020-02-29] MEDS: oxyCODONE/APAP 10/325mg tablet PO PRN ×5 (02:42→21:01)
[2020-02-29] MEDS: ipratropium/albuterol 3ml nebule NEB SCH ×4 (03:12→20:22)
[2020-02-29 05:56] LABS: BASOPHILS % (AUTO) 0.3 % (0-1); EOSINOPHILS # (AUTO) 0.2 X10'3 (0-0.9); HEMATOCRIT 29.3 % (42.0-52.0); HEMOGLOBIN 9.6 g/dl (14.0-17.9); LYMPHOCYTES # (AUTO) 1.3 X10'3 (1.1-4.8); LYMPHOCYTES % (AUTO) 15.3 % (21-51); MEAN CORPUSCULAR HEMOGLOBIN 29.9 PG (27.0-31.0); MEAN CORPUSCULAR HGB CONC 32.8 g/dL (33.0-36.5); MEAN CORPUSCULAR VOLUME 91.2 FL (78-98); MEAN PLATELET VOLUME 8.7 FL (7.4-10.4); MONOCYTES # (AUTO) 1.2 X10'3 (0-0.9); MONOCYTES % (AUTO) 13.5 % (2-12); NEUTROPHILS % (AUTO) 68.9 % (42-75); PLATELET COUNT 482 X10'3 (140-440); RED BLOOD COUNT 3.22 X10'6 (4.70-6.10); RED CELL DISTRIBUTION WIDTH 16.7 % (11.5-14.5); WHITE BLOOD COUNT 8.8 X10'3 (4.5-11.0)
--- NOTE | 2020-02-29 06:27 | NUR ---
Problems reprioritized. Patient report given, questions answered & plan of care reviewed with TABATHA Cuenca.
[2020-02-29 06:29] LABS: ALANINE AMINOTRANSFERASE 39 U/L (12-78); ALBUMIN 1.9 G/DL (3.4-5.0); ALBUMIN/GLOBULIN RATIO 0.5 (1.1-1.5); ALKALINE PHOSPHATASE 228 IU/L (46-116); ANION GAP 7 (8-16); ASPARTATE AMINO TRANSFERASE 46 U/L (10-37); BILIRUBIN,TOTAL 0.4 MG/DL (0.1-1.0); BLOOD UREA NITROGEN 15 MG/DL (7-18); BUN/CREATININE RATIO 11.1 (5.4-32.0); CALCIUM 8.4 MG/DL (8.5-10.1); CHLORIDE 107 MMOL/L (99-107); CREATININE 1.35 MG/DL (0.60-1.10); GLUCOSE 113 MG/DL (70-104); POTASSIUM 3.4 MMOL/L (3.5-5.1); SODIUM 140 MMOL/L (135-145); TOTAL CARBON DIOXIDE 25.8 MMOL/L (24-32); TOTAL PROTEIN 5.5 G/DL (6.4-8.2); eGFR 54 ML/MIN
[2020-02-29 06:30] VITALS: BP 131/77
[2020-02-29] MEDS: pantoprazole 40mg Tablet.DR PO SCH (08:33)
[2020-02-29] MEDS: amox tr/potassium clavulanate 875/125mg TAB PO SCH ×2 (08:33→16:53)
[2020-02-29] MEDS: aspirin 81mg tablet.DR PO SCH (08:33)
[2020-02-29] MEDS: carvedilol 6.25mg tablet PO SCH ×2 (08:34→21:02)
[2020-02-29] MEDS: lisinopril 5mg tablet PO SCH (08:34)
[2020-02-29] MEDS: atorvastatin 20mg tablet PO SCH (08:34)
[2020-02-29] MEDS: vitamin B comp w/Vit. C tab 1 TAB TABLET PO SCH (08:34)
[2020-02-29] MEDS: potassium Cl 20 mEq SR tablet PO PRN ×3 (08:34→21:02)
[2020-02-29] MEDS: lactobacillus rhamnosus 10,000 MMU CELLS/CAPSULE PO SCH ×2 (08:34→21:02)
[2020-02-29] MEDS: apixaban 5mg tablet PO SCH ×2 (08:35→21:03)
[2020-02-29] MEDS: clopidogrel 75mg tablet PO SCH (08:35)
[2020-02-29] MEDS: lactose-reduced food (Ensure Enlive) - 237ml bottle PO SCH ×3 (08:35→18:00)
--- NOTE | 2020-02-29 09:22 | NUR ---
PAGER ID: [phone] MESSAGE: Gualberto Dave [phone] liquid stool incontinent, board like stomach, distended, bladder scan =17ml in bladder. Pt. needs more pain medication for breakthrough pain. NO IV. Wheezes bilat. anterior lung lobes. [id number]
[2020-02-29 11:00] VITALS: BP 121/73
[2020-02-29 15:00] VITALS: BP 120/69
--- NOTE | 2020-02-29 15:40 | NUR ---
PAGER ID: [phone] MESSAGE: Called x ray for Clayton Gualberto- they said short staffed, long procedure, long line ahead of pt. cant be done today. Will be done first thing in AM. Pt. only needs to be NPO from 2400 on. Clear liquid diet? Joellen [phone] If has anymore questions xray stated to have him called MD Parkinson @ [phone]
[2020-02-29] MEDS: normal saline 1000ml 1,000 ML IV SCH (16:53)
[2020-02-29 18:00] VITALS: BP 159/57
--- NOTE | 2020-02-29 18:37 | NUR ---
Gave report to Shaniqua MAYS.
--- NOTE | 2020-02-29 19:00 | NUR ---
pt denies DVT tenderness; no redness or swelling noted Addendum: 03/01/20 at 0338 by Lluvia Arenas RN Amended: Links added.
[2020-02-29] MEDS: temazepam 15mg capsule PO PRN (21:55)
[2020-02-29 22:00] VITALS: BP 153/41
[2020-03-01] MEDS: oxyCODONE/APAP 10/325mg tablet PO PRN ×5 (01:00→22:17)
[2020-03-01] MEDS ORDERED: temazepam 15mg capsule PO ONE (01:10)
[2020-03-01] MEDS: normal saline 1000ml 1,000 ML IV SCH ×3 (02:26→16:04)
[2020-03-01 02:30] VITALS: BP 150/72
[2020-03-01] MEDS: ipratropium/albuterol 3ml nebule NEB SCH ×4 (02:55→20:55)
[2020-03-01 06:00] VITALS: BP 128/80
[2020-03-01 06:30] LABS: BASOPHILS % (AUTO) 0.4 % (0-1); EOSINOPHILS # (AUTO) 0.1 X10'3 (0-0.9); EOSINOPHILS % (AUTO) 1.5 % (0-6); HEMATOCRIT 28.7 % (42.0-52.0); HEMOGLOBIN 9.6 g/dl (14.0-17.9); LYMPHOCYTES # (AUTO) 2.1 X10'3 (1.1-4.8); LYMPHOCYTES % (AUTO) 21.2 % (21-51); MEAN CORPUSCULAR HEMOGLOBIN 30.7 PG (27.0-31.0); MEAN CORPUSCULAR HGB CONC 33.4 g/dL (33.0-36.5); MEAN PLATELET VOLUME 8.5 FL (7.4-10.4); MONOCYTES # (AUTO) 1.4 X10'3 (0-0.9); MONOCYTES % (AUTO) 13.9 % (2-12); NEUTROPHILS # (AUTO) 6.2 X10'3 (1.8-7.7); PLATELET COUNT 569 X10'3 (140-440); RED BLOOD COUNT 3.12 X10'6 (4.70-6.10); RED CELL DISTRIBUTION WIDTH 16.3 % (11.5-14.5); WHITE BLOOD COUNT 9.9 X10'3 (4.5-11.0)
[2020-03-01 06:57] LABS: ALANINE AMINOTRANSFERASE 64 U/L (12-78); ALBUMIN 1.8 G/DL (3.4-5.0); ALBUMIN/GLOBULIN RATIO 0.5 (1.1-1.5); ALKALINE PHOSPHATASE 204 IU/L (46-116); ANION GAP 8 (8-16); ASPARTATE AMINO TRANSFERASE 59 U/L (10-37); BILIRUBIN,TOTAL 0.4 MG/DL (0.1-1.0); BLOOD UREA NITROGEN 14 MG/DL (7-18); BUN/CREATININE RATIO 12.1 (5.4-32.0); CALCIUM 7.4 MG/DL (8.5-10.1); CHLORIDE 109 MMOL/L (99-107); CREATININE 1.16 MG/DL (0.60-1.10); GLUCOSE 97 MG/DL (70-104); MAGNESIUM 1.4 MG/DL (1.5-2.4); POTASSIUM 3.4 MMOL/L (3.5-5.1); SODIUM 141 MMOL/L (135-145); TOTAL CARBON DIOXIDE 24.4 MMOL/L (24-32); TOTAL PROTEIN 5.2 G/DL (6.4-8.2); eGFR 65 ML/MIN
[2020-03-01] MEDS: pantoprazole 40mg Tablet.DR PO SCH (07:30)
[2020-03-01] MEDS: vitamin B comp w/Vit. C tab 1 TAB TABLET PO SCH (08:00)
[2020-03-01] MEDS: carvedilol 6.25mg tablet PO SCH ×2 (08:00→22:23)
[2020-03-01] MEDS: lactobacillus rhamnosus 10,000 MMU CELLS/CAPSULE PO SCH ×2 (08:00→20:00)
[2020-03-01] MEDS: lactose-reduced food (Ensure Enlive) - 237ml bottle PO SCH ×3 (08:00→17:20)
[2020-03-01] MEDS: clopidogrel 75mg tablet PO SCH (08:00)
[2020-03-01] MEDS: apixaban 5mg tablet PO SCH (08:00)
[2020-03-01] MEDS: aspirin 81mg tablet.DR PO SCH (08:00)
[2020-03-01] MEDS: atorvastatin 20mg tablet PO SCH (08:00)
[2020-03-01] MEDS: lisinopril 5mg tablet PO SCH (08:00)
[2020-03-01] MEDS: amox tr/potassium clavulanate 875/125mg TAB PO SCH ×2 (08:27→16:12)
--- NOTE | 2020-03-01 08:43 | NUR ---
PAGER ID: [phone] MESSAGE: Brianna MONTAÑO 1402 : GI IS NOT AWARE OF THIS PATIENTS UPPER GI F/T ORDER. SAID HOSPITALIST NEEDS TO CALL GI THANK YOU, PEARL [phone]
--- NOTE | 2020-03-01 13:06 | NUR ---
promotional table spacer PAGER ID: [phone] MESSAGE: Brianna Arnold [phone]: radiology just called patient is positive for obstruction and follow through study is complete. please call radiologist with any questions. thanks! dania [phone]
[2020-03-01] MEDS ORDERED: LIDOcaine 2% 10ml TOPICAL JELLY (Urojet) MM ONE (13:30)
[2020-03-01 15:00] VITALS: BP 129/74
[2020-03-01] MEDS: potassium CL 10mEq/100ml bag 100 ML IV PRN ×2 (15:18→22:13)
--- NOTE | 2020-03-01 17:26 | NUR ---
Patient in room PCU 3021. I have received report from Andree george and had the opportunity to ask questions and assume patient care.
--- NOTE | 2020-03-01 17:26 | NUR ---
report called to TABATHA Roman on surgical. patient transferring to [facility]
--- NOTE | 2020-03-01 17:30 | NUR ---
Patient in room LEAH 360. I have received report from Valarie Eastman and had the opportunity to ask questions and assume patient care.
--- NOTE | 2020-03-01 17:45 | NUR ---
patient taken to CT scan. all belongings transferred to 360B. technical instructor will take patient to surgical room.
--- NOTE | 2020-03-01 18:00 | NUR ---
Student documentation: I have reviewed and agree with all interventions, assessments performed and documented by TABATHA Murillo. Student Medication Administration: For this medication-pass time frame, all medication were reviewed, dispensed, administered and documented per hospital policy by SN Lidia.
--- NOTE | 2020-03-01 18:10 | NUR ---
received pt to surgical, connected his NG tube to low intermittent suction and put his IV fluids on. Pt A & O X 4 in no apparent distress.
--- NOTE | 2020-03-01 18:25 | NUR ---
Problems reprioritized. Patient report given, questions answered & plan of care reviewed with Marybel Eastman.
--- NOTE | 2020-03-01 18:25 | NUR ---
Patient in room LEAH 360. I have received report from Jessie MAYS and had the opportunity to ask questions and assume patient care.
--- NOTE | 2020-03-01 18:40 | NUR ---
Patient in room LEAH 360. I have received report from Jessie Eastman and had the opportunity to ask questions and assume patient care.
[2020-03-01 19:30] VITALS: BP 147/70
--- NOTE | 2020-03-01 20:19 | NUR ---
Dr Lee called to hold juli now for pending surgery this day .
[2020-03-01] MEDS: temazepam 15mg capsule PO PRN (22:17)
[2020-03-02] VITALS: BP 156/77
[2020-03-02] MEDS: potassium CL 10mEq/100ml bag 100 ML IV PRN ×2 (00:20→01:18)
[2020-03-02] MEDS: temazepam 15mg capsule PO PRN ×2 (01:51→22:10)
[2020-03-02] MEDS: oxyCODONE/APAP 10/325mg tablet PO PRN ×6 (01:54→22:09)
[2020-03-02] MEDS: ipratropium/albuterol 3ml nebule NEB SCH ×4 (02:45→20:11)
[2020-03-02 05:22] LABS: HEMOGLOBIN 9.9 g/dl (14.0-17.9); LYMPHOCYTES # (AUTO) 2.4 X10'3 (1.1-4.8); MONOCYTES # (AUTO) 1.2 X10'3 (0-0.9); NEUTROPHILS # (AUTO) 6.3 X10'3 (1.8-7.7); WHITE BLOOD COUNT 10.2 X10'3 (4.5-11.0)
[2020-03-02 05:25] LABS: BASOPHILS % (AUTO) 0.5 % (0-1); EOSINOPHILS # (AUTO) 0.2 X10'3 (0-0.9); EOSINOPHILS % (AUTO) 2.3 % (0-6); HEMATOCRIT 29.2 % (42.0-52.0); LYMPHOCYTES % (AUTO) 23.4 % (21-51); MEAN CORPUSCULAR HEMOGLOBIN 31.2 PG (27.0-31.0); MEAN CORPUSCULAR HGB CONC 33.8 g/dL (33.0-36.5); MEAN CORPUSCULAR VOLUME 92.4 FL (78-98); MEAN PLATELET VOLUME 8.3 FL (7.4-10.4); MONOCYTES % (AUTO) 12.2 % (2-12); NEUTROPHILS % (AUTO) 61.6 % (42-75); PLATELET COUNT 636 X10'3 (140-440); RED BLOOD COUNT 3.16 X10'6 (4.70-6.10); RED CELL DISTRIBUTION WIDTH 16.8 % (11.5-14.5)
[2020-03-02] MEDS: normal saline 1000ml 1,000 ML IV SCH ×2 (05:33→16:46)
[2020-03-02 05:44] LABS: ALANINE AMINOTRANSFERASE 59 U/L (12-78); ALBUMIN/GLOBULIN RATIO 0.6 (1.1-1.5); ALKALINE PHOSPHATASE 197 IU/L (46-116); ANION GAP 12 (8-16); ASPARTATE AMINO TRANSFERASE 50 U/L (10-37); BILIRUBIN,TOTAL 0.4 MG/DL (0.1-1.0); BLOOD UREA NITROGEN 13 MG/DL (7-18); BUN/CREATININE RATIO 11.7 (5.4-32.0); CALCIUM 7.9 MG/DL (8.5-10.1); CHLORIDE 106 MMOL/L (99-107); CREATININE 1.11 MG/DL (0.60-1.10); GLUCOSE 67 MG/DL (70-104); MAGNESIUM 1.3 MG/DL (1.5-2.4); POTASSIUM 4.3 MMOL/L (3.5-5.1); SODIUM 139 MMOL/L (135-145); TOTAL CARBON DIOXIDE 21.3 MMOL/L (24-32); TOTAL PROTEIN 5.5 G/DL (6.4-8.2); eGFR 68 ML/MIN
--- NOTE | 2020-03-02 06:39 | NUR ---
Problems reprioritized. Patient report given, questions answered & plan of care reviewed with Andree MAYS.
--- NOTE | 2020-03-02 07:27 | NUR ---
PAGER ID: [phone] MESSAGE: [phone] Brianna Arnold: patients Eliquis is on hold. would you like me to hold Plavix and aspirin as well? dania [phone]
[2020-03-02 07:45] VITALS: BP 124/68
[2020-03-02] MEDS: lactose-reduced food (Ensure Enlive) - 237ml bottle PO SCH ×3 (08:00→18:00)
[2020-03-02 08:31] LABS: ANISOCYTOSIS 1+; PLATELET ESTIMATE INCREASED
[2020-03-02 08:32] LABS: GIANT PLATELET FEW; LARGE PLATELETS FEW
[2020-03-02 08:34] LABS: SCHISTOCYTES FEW
[2020-03-02 08:36] LABS: BURR CELLS 1+; POIKILOCYTOSIS FEW
[2020-03-02] MEDS: lisinopril 5mg tablet PO SCH (09:31)
[2020-03-02] MEDS: amox tr/potassium clavulanate 875/125mg TAB PO SCH ×2 (09:31→16:45)
[2020-03-02] MEDS: atorvastatin 20mg tablet PO SCH (09:31)
[2020-03-02] MEDS: magnesium Cl slow-release 64mg tablet PO PRN (09:31)
[2020-03-02] MEDS: lactobacillus rhamnosus 10,000 MMU CELLS/CAPSULE PO SCH ×2 (09:31→19:43)
[2020-03-02] MEDS: carvedilol 6.25mg tablet PO SCH ×2 (09:32→19:43)
[2020-03-02] MEDS: vitamin B comp w/Vit. C tab 1 TAB TABLET PO SCH (09:43)
[2020-03-02] MEDS: pantoprazole 40mg Tablet.DR PO SCH (09:43)
[2020-03-02 11:00] VITALS: BP 121/71
[2020-03-02 11:55] VITALS: BP 124/68
--- NOTE | 2020-03-02 14:48 | NUR ---
Reassessment: Pt previously with average 50-75% PO intake up to 100% PO intake since dinner 02/27 with 100% PO intake of ONS. Patient's diet was changed to NPO following KUB which showed dilated bowel loops concerning for obstruction per physician notes. Pt with surgery tentatively scheduled for tomorrow d/t persistent stricture of the anastomosis noted on f/u CT scan per physician notes. PO diet has been advanced to clear liquid, pending documentation of PO intake. LBM 03/01, documented with moderate stool. Will continue to follow closely. Recommendations: 1) Advance diet as medically indicated to low-residue 2) Once diet is advanced resume strawberry Ensure Enlive TID, dislikes chocolate 3) [place] food preferences once PO: dislikes cream of wheat 4) Bowel care per rx; if copious diarrhea consider anti-diarrheal post-op 5) weekly scaled weights Addendum: 03/02/20 at [address] Amended: Links added.
[2020-03-02 18:00] VITALS: BP 134/72
--- NOTE | 2020-03-02 18:14 | NUR ---
Problems reprioritized. Patient report given, questions answered & plan of care reviewed with TABATHA CLARKE.
--- NOTE | 2020-03-02 18:40 | NUR ---
I have received report from TABATHA Candelario and had the opportunity to ask questions and assume patient care.
[2020-03-03] VITALS: BP 125/68
[2020-03-03] MEDS: normal saline 1000ml 1,000 ML IV SCH ×2 (02:42→14:41)
[2020-03-03] MEDS: oxyCODONE/APAP 10/325mg tablet PO PRN ×5 (02:48→20:35)
[2020-03-03] MEDS: ipratropium/albuterol 3ml nebule NEB SCH ×4 (03:00→21:30)
[2020-03-03 05:27] LABS: PARTIAL THROMBOPLASTIN TIME 40 SECONDS (22-32)
[2020-03-03 05:41] LABS: ALANINE AMINOTRANSFERASE 41 U/L (12-78); ALBUMIN 1.8 G/DL (3.4-5.0); ALBUMIN/GLOBULIN RATIO 0.5 (1.1-1.5); ALKALINE PHOSPHATASE 158 IU/L (46-116); ANION GAP 17 (8-16); ASPARTATE AMINO TRANSFERASE 33 U/L (10-37); BILIRUBIN,TOTAL 0.4 MG/DL (0.1-1.0); BLOOD UREA NITROGEN 12 MG/DL (7-18); CALCIUM 7.7 MG/DL (8.5-10.1); CHLORIDE 106 MMOL/L (99-107); GLUCOSE 66 MG/DL (70-104); MAGNESIUM 1.2 MG/DL (1.5-2.4); POTASSIUM 3.4 MMOL/L (3.5-5.1); SODIUM 140 MMOL/L (135-145); TOTAL CARBON DIOXIDE 16.7 MMOL/L (24-32); TOTAL PROTEIN 5.2 G/DL (6.4-8.2); eGFR 62 ML/MIN
[2020-03-03 05:45] LABS: BASOPHILS # (AUTO) 0.1 X10'3 (0-0.2); BASOPHILS % (AUTO) 0.8 % (0-1); EOSINOPHILS # (AUTO) 0.2 X10'3 (0-0.9); LYMPHOCYTES # (AUTO) 1.9 X10'3 (1.1-4.8); RED BLOOD COUNT 3.01 X10'6 (4.70-6.10); RED CELL DISTRIBUTION WIDTH 16.3 % (11.5-14.5)
[2020-03-03 05:47] LABS: EOSINOPHILS % (AUTO) 1.7 % (0-6); HEMATOCRIT 27.6 % (42.0-52.0); HEMOGLOBIN 8.9 g/dl (14.0-17.9); LYMPHOCYTES % (AUTO) 15.8 % (21-51); MEAN CORPUSCULAR HEMOGLOBIN 29.5 PG (27.0-31.0); MEAN CORPUSCULAR HGB CONC 32.2 g/dL (33.0-36.5); MEAN CORPUSCULAR VOLUME 91.7 FL (78-98); MEAN PLATELET VOLUME 8.3 FL (7.4-10.4); MONOCYTES # (AUTO) 1.2 X10'3 (0-0.9); MONOCYTES % (AUTO) 10.3 % (2-12); NEUTROPHILS # (AUTO) 8.4 X10'3 (1.8-7.7); NEUTROPHILS % (AUTO) 71.4 % (42-75); PLATELET COUNT 721 X10'3 (140-440); WHITE BLOOD COUNT 11.7 X10'3 (4.5-11.0)
--- NOTE | 2020-03-03 06:35 | NUR ---
Problems reprioritized. Patient report given, questions answered & plan of care reviewed with TABATHA Mcguire.
[2020-03-03 06:37] LABS: ANISOCYTOSIS 1+
[2020-03-03 06:38] LABS: LARGE PLATELETS FEW; POIKILOCYTOSIS FEW
[2020-03-03 06:39] LABS: BURR CELLS 1+; ELLIPTOCYTES FEW
[2020-03-03 06:43] LABS: PLATELET ESTIMATE INCREASED; SCHISTOCYTES FEW
--- NOTE | 2020-03-03 07:04 | NUR ---
PAGER ID: [phone] MESSAGE: Brianna ArnoldB: pt's AM glucose 59, non diabetic. he is NPO. would you like me to give IV d50? or switch to dextrose in fluids? dania [phone]
[2020-03-03] MEDS ORDERED: dextrose 50%-water 50ml dispensing syringe IV PRN (07:10)
[2020-03-03] MEDS: pantoprazole 40mg Tablet.DR PO SCH (07:30)
[2020-03-03] MEDS: dextrose 5%-water 1,000 ML IV SCH ×2 (07:31→16:48)
[2020-03-03] MEDS: amox tr/potassium clavulanate 875/125mg TAB PO SCH ×2 (07:31→16:42)
[2020-03-03 07:40] VITALS: BP 128/68
[2020-03-03] MEDS: atorvastatin 20mg tablet PO SCH (08:00)
[2020-03-03] MEDS: vitamin B comp w/Vit. C tab 1 TAB TABLET PO SCH (08:00)
[2020-03-03] MEDS: lisinopril 5mg tablet PO SCH (08:00)
[2020-03-03] MEDS: lactobacillus rhamnosus 10,000 MMU CELLS/CAPSULE PO SCH ×2 (08:00→20:34)
[2020-03-03] MEDS: lactose-reduced food (Ensure Enlive) - 237ml bottle PO SCH ×3 (08:00→16:48)
[2020-03-03] MEDS: carvedilol 6.25mg tablet PO SCH ×2 (08:29→20:35)
[2020-03-03] MEDS: magnesium 4gm in 100ml NS 100 ML IV PRN (08:30)
[2020-03-03 11:00] VITALS: BP 130/72
--- NOTE | 2020-03-03 11:07 | NUR ---
Report given to surgical smelter charger. 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
[2020-03-03 12:41] VITALS: BP 130/72
--- NOTE | 2020-03-03 15:00 | NUR ---
LEARNED THAT PATIENTS SURGERY WAS ONCE AGAIN PUSHED BACK UNTIL TOMORROW AM. PATIENT AWARE.
[2020-03-03] MEDS: magnesium 2GM in 50ml NS 50 ML IV PRN (16:43)
--- NOTE | 2020-03-03 17:57 | NUR ---
PAGER ID: [phone] MESSAGE: Brianna MONTAÑO 360B : PT REQUESTING THAT HIS RESTORIL AT NIGHT HAVE A MAY REPEAT X1 ORDER.. ARE YOU OK WITH THAT? THANKS, PEARL 1300
--- NOTE | 2020-03-03 18:30 | NUR ---
Problems reprioritized. Patient report given, questions answered & plan of care reviewed with TABATHA CLARKE.
[2020-03-03] MEDS: potassium CL 10mEq/100ml bag 100 ML IV PRN ×4 (18:58→23:35)
--- NOTE | 2020-03-03 19:10 | NUR ---
I have received report from TABATHA Candelario and had the opportunity to ask questions and assume patient care.
--- NOTE | 2020-03-03 19:12 | NUR ---
Patient in room LEAH 360. I have received report from Andree MAYS and had the opportunity to ask questions and assume patient care.
[2020-03-03] MEDS: temazepam 15mg capsule PO PRN (22:03)
[2020-03-04 00:37] VITALS: BP 103/58
[2020-03-04] MEDS: normal saline 1000ml 1,000 ML IV SCH ×3 (00:41→20:41)
[2020-03-04] MEDS: temazepam 15mg capsule PO PRN ×2 (01:54→21:03)
[2020-03-04] MEDS: oxyCODONE/APAP 10/325mg tablet PO PRN ×5 (01:55→21:05)
[2020-03-04] MEDS: ipratropium/albuterol 3ml nebule NEB SCH ×4 (03:00→20:39)
[2020-03-04] MEDS: dextrose 5%-water 1,000 ML IV SCH ×3 (04:49→21:54)
[2020-03-04 06:12] LABS: BASOPHILS # (AUTO) 0.1 X10'3 (0-0.2); EOSINOPHILS # (AUTO) 0.2 X10'3 (0-0.9); HEMOGLOBIN 8.8 g/dl (14.0-17.9); LYMPHOCYTES # (AUTO) 1.7 X10'3 (1.1-4.8); MEAN CORPUSCULAR VOLUME 90.7 FL (78-98); MONOCYTES # (AUTO) 1.1 X10'3 (0-0.9)
[2020-03-04 06:13] LABS: GLUCOSE 110 MG/DL (70-104); POTASSIUM 3.2 MMOL/L (3.5-5.1); SODIUM 135 MMOL/L (135-145)
[2020-03-04 06:14] LABS: ALANINE AMINOTRANSFERASE 33 U/L (12-78); ALBUMIN 1.7 G/DL (3.4-5.0); ALBUMIN/GLOBULIN RATIO 0.5 (1.1-1.5); ALKALINE PHOSPHATASE 135 IU/L (46-116); ANION GAP 8 (8-16); ASPARTATE AMINO TRANSFERASE 25 U/L (10-37); BASOPHILS % (AUTO) 0.7 % (0-1); BILIRUBIN,TOTAL 0.3 MG/DL (0.1-1.0); BLOOD UREA NITROGEN 5 MG/DL (7-18); BUN/CREATININE RATIO 4.9 (5.4-32.0); CALCIUM 7.3 MG/DL (8.5-10.1); CHLORIDE 106 MMOL/L (99-107); CREATININE 1.02 MG/DL (0.60-1.10); EOSINOPHILS % (AUTO) 2.2 % (0-6); HEMATOCRIT 25.5 % (42.0-52.0); LYMPHOCYTES % (AUTO) 16.7 % (21-51); MAGNESIUM 1.9 MG/DL (1.5-2.4); MEAN CORPUSCULAR HEMOGLOBIN 31.2 PG (27.0-31.0); MEAN CORPUSCULAR HGB CONC 34.4 g/dL (33.0-36.5); MEAN PLATELET VOLUME 7.9 FL (7.4-10.4); NEUTROPHILS # (AUTO) 7.1 X10'3 (1.8-7.7); NEUTROPHILS % (AUTO) 69.4 % (42-75); PLATELET COUNT 764 X10'3 (140-440); RED BLOOD COUNT 2.82 X10'6 (4.70-6.10); RED CELL DISTRIBUTION WIDTH 16.4 % (11.5-14.5); TOTAL CARBON DIOXIDE 20.7 MMOL/L (24-32); WHITE BLOOD COUNT 10.2 X10'3 (4.5-11.0); eGFR 75 ML/MIN
--- NOTE | 2020-03-04 06:40 | NUR ---
Problems reprioritized. Patient report given, questions answered & plan of care reviewed with Joellen MAYS.
--- NOTE | 2020-03-04 06:42 | NUR ---
Problems reprioritized. Patient report given, questions answered & plan of care reviewed with Joellen MAYS.
--- NOTE | 2020-03-04 06:43 | NUR ---
I agree with LEE Ramesh [facility] students documentation.
[2020-03-04 07:00] VITALS: BP 120/70
[2020-03-04] MEDS: lactose-reduced food (Ensure Enlive) - 237ml bottle PO SCH ×3 (08:00→18:00)
[2020-03-04] MEDS: potassium CL 10mEq/100ml bag 100 ML IV PRN ×4 (08:01→16:16)
[2020-03-04] MEDS: pantoprazole 40mg Tablet.DR PO SCH (08:02)
[2020-03-04] MEDS: amox tr/potassium clavulanate 875/125mg TAB PO SCH ×2 (08:02→16:23)
[2020-03-04] MEDS: lactobacillus rhamnosus 10,000 MMU CELLS/CAPSULE PO SCH ×2 (08:02→21:04)
[2020-03-04] MEDS: atorvastatin 20mg tablet PO SCH (08:02)
[2020-03-04] MEDS: lisinopril 5mg tablet PO SCH (08:02)
[2020-03-04] MEDS: vitamin B comp w/Vit. C tab 1 TAB TABLET PO SCH (08:03)
[2020-03-04] MEDS: carvedilol 6.25mg tablet PO SCH ×2 (08:03→21:04)
[2020-03-04 11:16] VITALS: BP 120/70
--- NOTE | 2020-03-04 11:19 | NUR ---
Pt transported to OR on surgical bed. Belongings left in room 360B.
[2020-03-04 11:39] LABS: PARTIAL THROMBOPLASTIN TIME 39 SECONDS (22-32)
[2020-03-04 12:00] VITALS: BP 133/70
--- NOTE | 2020-03-04 17:00 | NUR ---
PAGER ID: [phone] MESSAGE: Gualberto Arnold 360A Having many liquid stools for at least a week. Requiring almost daily potassium replacement. Since pt. is eating and not NPO anymore can we have order for continues fluids with K in it instead of dextrose? Joellen 1343
--- NOTE | 2020-03-04 18:46 | NUR ---
Patient in room LEAH 360. I have received report from Joellen MAYS and had the opportunity to ask questions and assume patient care.
--- NOTE | 2020-03-04 18:47 | NUR ---
I have received report from TABATHA Cuenca and had the opportunity to ask questions and assume patient care.
--- NOTE | 2020-03-04 18:57 | NUR ---
Gave report to Tal MAYS.
[2020-03-04 19:00] VITALS: BP 140/85
[2020-03-05 01:35] VITALS: BP 103/62
[2020-03-05] MEDS: temazepam 15mg capsule PO PRN ×2 (01:58→20:52)
[2020-03-05] MEDS: oxyCODONE/APAP 10/325mg tablet PO PRN ×4 (01:59→20:51)
[2020-03-05] MEDS: ipratropium/albuterol 3ml nebule NEB SCH ×4 (03:26→20:27)
[2020-03-05 05:15] LABS: MAGNESIUM 1.3 MG/DL (1.5-2.4); POTASSIUM 3.2 MMOL/L (3.5-5.1)
[2020-03-05 06:30] VITALS: BP 99/61
--- NOTE | 2020-03-05 06:31 | NUR ---
Problems reprioritized. Patient report given, questions answered & plan of care reviewed with Joellen MAYS.
--- NOTE | 2020-03-05 06:40 | NUR ---
Problems reprioritized. Patient report given, questions answered & plan of care reviewed with TABATHA Cuenca.
[2020-03-05] MEDS: normal saline 1000ml 1,000 ML IV SCH (06:41)
--- NOTE | 2020-03-05 06:41 | NUR ---
I reviewed student LEE Ramesh charting and am agreement with it. I also agree with his report that he gave to the on coming nurse.
[2020-03-05] MEDS ORDERED: POTASSIUM BICARB 20meq eff tab 20 MEQ TABLET.EFF PO PRN (07:10)
[2020-03-05] MEDS: lisinopril 5mg tablet PO SCH (08:00)
[2020-03-05] MEDS: POTASSIUM BICARB 20meq eff tab 20 MEQ TABLET.EFF PO PRN ×3 (08:33→17:05)
[2020-03-05] MEDS: lactobacillus rhamnosus 10,000 MMU CELLS/CAPSULE PO SCH ×2 (08:33→20:51)
[2020-03-05] MEDS: magnesium Cl slow-release 64mg tablet PO PRN ×2 (08:34→17:05)
[2020-03-05] MEDS: amox tr/potassium clavulanate 875/125mg TAB PO SCH (08:35)
[2020-03-05] MEDS: atorvastatin 20mg tablet PO SCH (08:36)
[2020-03-05] MEDS: pantoprazole 40mg Tablet.DR PO SCH (08:36)
[2020-03-05] MEDS: vitamin B comp w/Vit. C tab 1 TAB TABLET PO SCH (08:36)
[2020-03-05] MEDS: carvedilol 6.25mg tablet PO SCH ×2 (08:38→20:52)
[2020-03-05] MEDS: lactose-reduced food (Ensure Enlive) - 237ml bottle PO SCH ×3 (08:40→18:55)
[2020-03-05] MEDS: dextrose 5%-water 1,000 ML IV SCH (08:45)
--- NOTE | 2020-03-05 11:12 | NUR ---
Reassessment: Pt declining to have procedure done at this time per physician notes. Patient's diet was advanced to clear liquids and pt documented with 0% PO intake first meal, up to 100% at following meal. Diet was further advanced to regular and pt documented with 25% PO intake at dinner last night, pending documentation of PO intake for today. Ensure Enlive TID has been resumed with diet advancement, pt documented with 100% PO intake. LBM 03/05, documented with diarrhea. Per physician notes pt reports having a large BM which has been verified by nursing staff. Pt would benefit from diet change to low fiber given recent GI surgery and liquid stools. Pt receiving PRN electrolyte replacement. Will continue to follow closely and monitor need for further nutrition intervention. Recommendations: 1) Diet change to low-residue given recent GI surgery and liquid stools 2) [place] Ensure Enlive TID, dislikes chocolate 3) [place] food preferences: dislikes cream of wheat 4) Bowel care per rx; if copious diarrhea consider anti-diarrheal post-op 5) weekly scaled weights Addendum: 03/05/20 at [address] Amended: Links added.
[2020-03-05 12:00] VITALS: BP 111/66
[2020-03-05 19:00] VITALS: BP 103/62
--- NOTE | 2020-03-05 19:00 | NUR ---
Received report from primary care nurse Joellen MAYS. Patient is awake and alert on room air. Call light and items of frequent use within reach.
--- NOTE | 2020-03-05 19:01 | NUR ---
GAVE REPORT TO HENRRY MAYS.
--- NOTE | 2020-03-05 20:45 | NUR ---
Patient declined second dressing change at this time, "she just did it." Will offer again in am during lab rounds. Addendum: 03/06/20 at 0012 by Mery Cao RN Amended: Links added.
[2020-03-05] MEDS: apixaban 5mg tablet PO SCH (20:51)
[2020-03-06] VITALS: BP 104/62
[2020-03-06] MEDS: oxyCODONE/APAP 10/325mg tablet PO PRN ×4 (01:57→21:49)
[2020-03-06] MEDS: ipratropium/albuterol 3ml nebule NEB SCH ×4 (03:51→20:52)
[2020-03-06 05:49] LABS: BASOPHILS # (AUTO) 0.1 X10'3 (0-0.2); BASOPHILS % (AUTO) 0.7 % (0-1); EOSINOPHILS # (AUTO) 0.2 X10'3 (0-0.9); EOSINOPHILS % (AUTO) 2.6 % (0-6); HEMOGLOBIN 8.5 g/dl (14.0-17.9); LYMPHOCYTES # (AUTO) 1.9 X10'3 (1.1-4.8); LYMPHOCYTES % (AUTO) 22.9 % (21-51); MEAN CORPUSCULAR HEMOGLOBIN 30.5 PG (27.0-31.0); MEAN CORPUSCULAR HGB CONC 34.2 g/dL (33.0-36.5); MEAN CORPUSCULAR VOLUME 89.3 FL (78-98); MEAN PLATELET VOLUME 7.8 FL (7.4-10.4); MONOCYTES # (AUTO) 0.8 X10'3 (0-0.9); MONOCYTES % (AUTO) 9.7 % (2-12); NEUTROPHILS # (AUTO) 5.3 X10'3 (1.8-7.7); NEUTROPHILS % (AUTO) 64.1 % (42-75); PLATELET COUNT 787 X10'3 (140-440); RED CELL DISTRIBUTION WIDTH 16.2 % (11.5-14.5); WHITE BLOOD COUNT 8.3 X10'3 (4.5-11.0)
[2020-03-06 06:19] LABS: ALANINE AMINOTRANSFERASE 25 U/L (12-78); ALBUMIN 1.8 G/DL (3.4-5.0); ALBUMIN/GLOBULIN RATIO 0.5 (1.1-1.5); ALKALINE PHOSPHATASE 134 IU/L (46-116); ANION GAP 6 (8-16); ASPARTATE AMINO TRANSFERASE 23 U/L (10-37); BILIRUBIN,TOTAL 0.2 MG/DL (0.1-1.0); BLOOD UREA NITROGEN 2 MG/DL (7-18); BUN/CREATININE RATIO 1.9 (5.4-32.0); CALCIUM 7.8 MG/DL (8.5-10.1); CHLORIDE 107 MMOL/L (99-107); CREATININE 1.07 MG/DL (0.60-1.10); GLUCOSE 104 MG/DL (70-104); POTASSIUM 3.6 MMOL/L (3.5-5.1); SODIUM 137 MMOL/L (135-145); TOTAL CARBON DIOXIDE 24.1 MMOL/L (24-32); TOTAL PROTEIN 5.2 G/DL (6.4-8.2); eGFR 71 ML/MIN
--- NOTE | 2020-03-06 06:38 | NUR ---
Reported off to Carlee MAYS. Patient is resting with relaxed and unlabored respirations on room air. Call light and items of frequent use within reach.
--- NOTE | 2020-03-06 06:48 | NUR ---
Patient in room LEAH 360. I have received report from Mery MAYS and had the opportunity to ask questions and assume patient care.
[2020-03-06 07:15] VITALS: BP 95/53
[2020-03-06 07:37] LABS: MAGNESIUM 1.3 MG/DL (1.5-2.4)
[2020-03-06] MEDS: lactose-reduced food (Ensure Enlive) - 237ml bottle PO SCH ×3 (08:00→18:36)
[2020-03-06] MEDS: pantoprazole 40mg Tablet.DR PO SCH (09:13)
[2020-03-06] MEDS: carvedilol 6.25mg tablet PO SCH ×2 (09:14→21:48)
[2020-03-06] MEDS: lactobacillus rhamnosus 10,000 MMU CELLS/CAPSULE PO SCH ×2 (09:15→21:48)
[2020-03-06] MEDS: apixaban 5mg tablet PO SCH ×2 (09:15→21:48)
[2020-03-06] MEDS: atorvastatin 20mg tablet PO SCH (09:16)
[2020-03-06] MEDS: vitamin B comp w/Vit. C tab 1 TAB TABLET PO SCH (09:17)
[2020-03-06] MEDS: lisinopril 5mg tablet PO SCH (09:18)
[2020-03-06] MEDS: magnesium Cl slow-release 64mg tablet PO PRN ×2 (09:20→21:48)
[2020-03-06 12:00] VITALS: BP 112/68
--- NOTE | 2020-03-06 17:02 | NUR ---
patient stated he had six bm and six voids no evidence of this seen. patient counselled to leave urine and stool in bathroom so staff can observe Addendum: 03/06/20 at 1704 by Carlee Renner RN Amended: Links added.
--- NOTE | 2020-03-06 17:04 | NUR ---
patient appears stable this shift. percocet for pain x2 with relief. patient stated he has been up to BR x6 times for BM and Voiding. No evidence observed of this. patient counselled to leave BM and void in urinal so staff can observe. dressing changed to midline, clean, no sign of infection observed. Redressed. patient seen by Dr gregg. will continue to monitor.
[2020-03-06 18:00] VITALS: BP 104/68
--- NOTE | 2020-03-06 18:37 | NUR ---
Problems reprioritized. Patient report given, questions answered & plan of care reviewed with Berna Mccormick RN.
--- NOTE | 2020-03-06 18:47 | NUR ---
Patient in room LEAH 360. I have received report from TABATHA Bejarano and had the opportunity to ask questions and assume patient care.
[2020-03-06 21:30] VITALS: BP_SYST 116
[2020-03-06] MEDS: temazepam 15mg capsule PO PRN (21:48)
[2020-03-07] VITALS: BP 110/60
[2020-03-07] MEDS: oxyCODONE/APAP 10/325mg tablet PO PRN (01:27)
[2020-03-07] MEDS: ipratropium/albuterol 3ml nebule NEB SCH ×2 (02:54→09:45)
[2020-03-07 05:35] LABS: HEMOGLOBIN 8.3 g/dl (14.0-17.9); NEUTROPHILS # (AUTO) 3.4 X10'3 (1.8-7.7); NEUTROPHILS % (AUTO) 50.7 % (42-75)
[2020-03-07 05:37] LABS: BASOPHILS # (AUTO) 0.1 X10'3 (0-0.2); BASOPHILS % (AUTO) 0.9 % (0-1); EOSINOPHILS # (AUTO) 0.3 X10'3 (0-0.9); HEMATOCRIT 24.7 % (42.0-52.0); LYMPHOCYTES # (AUTO) 2.3 X10'3 (1.1-4.8); LYMPHOCYTES % (AUTO) 34.9 % (21-51); MEAN CORPUSCULAR HEMOGLOBIN 30.4 PG (27.0-31.0); MEAN CORPUSCULAR HGB CONC 33.7 g/dL (33.0-36.5); MEAN CORPUSCULAR VOLUME 90.3 FL (78-98); MONOCYTES # (AUTO) 0.6 X10'3 (0-0.9); MONOCYTES % (AUTO) 9.5 % (2-12); PLATELET COUNT 803 X10'3 (140-440); RED BLOOD COUNT 2.74 X10'6 (4.70-6.10); WHITE BLOOD COUNT 6.7 X10'3 (4.5-11.0)
[2020-03-07 05:48] LABS: ALANINE AMINOTRANSFERASE 29 U/L (12-78); ALBUMIN 1.9 G/DL (3.4-5.0); ALBUMIN/GLOBULIN RATIO 0.5 (1.1-1.5); ALKALINE PHOSPHATASE 146 IU/L (46-116); ANION GAP 10 (8-16); ASPARTATE AMINO TRANSFERASE 23 U/L (10-37); BILIRUBIN,TOTAL 0.3 MG/DL (0.1-1.0); BLOOD UREA NITROGEN 5 MG/DL (7-18); BUN/CREATININE RATIO 5.1 (5.4-32.0); CALCIUM 7.3 MG/DL (8.5-10.1); CHLORIDE 105 MMOL/L (99-107); CREATININE 0.98 MG/DL (0.60-1.10); GLUCOSE 99 MG/DL (70-104); POTASSIUM 3.4 MMOL/L (3.5-5.1); SODIUM 139 MMOL/L (135-145); TOTAL CARBON DIOXIDE 24.5 MMOL/L (24-32); TOTAL PROTEIN 5.4 G/DL (6.4-8.2); eGFR 79 ML/MIN
--- NOTE | 2020-03-07 06:22 | NUR ---
Problems reprioritized. Patient report given, questions answered & plan of care reviewed with TABATHA Gold.
--- NOTE | 2020-03-07 06:40 | NUR ---
PAGER ID: [phone] MESSAGE: RE: 360B, Gualberto Arnold. Mg+ is 1.0. Will replace per protocol. thank you, Carissa [phone]
--- NOTE | 2020-03-07 06:44 | NUR ---
Patient in room LEAH 360. I have received report from Araceli Mccormick RN and had the opportunity to ask questions and assume patient care.
[2020-03-07 07:00] VITALS: BP 162/67
[2020-03-07 07:30] VITALS: BP 110/64
[2020-03-07] MEDS: pantoprazole 40mg Tablet.DR PO SCH (07:51)
[2020-03-07] MEDS: lactose-reduced food (Ensure Enlive) - 237ml bottle PO SCH ×2 (07:52→13:25)
[2020-03-07] MEDS: lactobacillus rhamnosus 10,000 MMU CELLS/CAPSULE PO SCH (07:55)
[2020-03-07] MEDS: atorvastatin 20mg tablet PO SCH (07:55)
[2020-03-07] MEDS: apixaban 5mg tablet PO SCH (07:55)
[2020-03-07] MEDS: POTASSIUM BICARB 20meq eff tab 20 MEQ TABLET.EFF PO PRN ×2 (07:56→13:29)
[2020-03-07] MEDS: carvedilol 6.25mg tablet PO SCH (07:56)
[2020-03-07] MEDS: vitamin B comp w/Vit. C tab 1 TAB TABLET PO SCH (07:56)
[2020-03-07] MEDS: magnesium Cl slow-release 64mg tablet PO PRN (07:57)
[2020-03-07] MEDS: lisinopril 5mg tablet PO SCH (07:57)
--- NOTE | 2020-03-07 10:45 | NUR ---
Pt states he has had 3 voids and 3 BMs but did not save. Pt re-educated to call staff to visualize voids/BMs. Pt verbalized understanding.
[2020-03-07 11:30] VITALS: BP 124/74
[2020-03-07] MEDS ORDERED: APIX5TAB3 PO (12:40)
[2020-03-07] MEDS ORDERED: MAGN64TA10 PO (12:40)
--- NOTE | 2020-03-07 16:45 | NUR ---
Pt stable and appropriate for d/c. Extended PIV dc'd, cannula intact. Reviewed with Pt all d/c instructions and meds, f/u appts, wound care, additional supplies given. Pt has f/u appt with [facility], at 1230. Pt verbalized understanding. pt given opportunity to ask questions, answers provided. Prescriptions escripted to Donovan Quick. Pt's home meds returned to pt. Pt to call and make f/u appts with PCP and Dr Nunez for 1 week. Pt to call PCP with any questions/concerns or signs/symptoms of complications or infection or return to nearest ED. Pt escorted to front lobby by staff member via w/c with all personal belongings. Pt d/c'd home in private vehicle driven by friend/transport that pt phoned.
[2020-03-07] MEDS ORDERED: magnesium Cl slow-release 64mg tablet PO SCH (20:00)
== END 2020-03-07 16:52 | disposition home or self-care (01) | DRG 230 ==
LOC: ER 08:15 → ED HOLD 11:11 → SUR 3N 14:47 → ICU 2S 02-19 17:18 → CICU 2S 02-19 18:45 → SUR 3N 02-24 15:21 → PCU 3S 02-27 12:27 → SUR 3N 03-01 18:02
PROVIDERS: ADMIT Family Medicine; ATTEND Family Medicine
PROC: 30233K1 Transfusion of Nonautologous Frozen Plasma into Peripheral Vein, Percutaneous Approach (ICD-10-PCS; 2020-02-19)
PROC: 30233N1 Transfusion of Nonautologous Red Blood Cells into Peripheral Vein, Percutaneous Approach (ICD-10-PCS; 2020-02-19)
PROC: 30233R1 Transfusion of Nonautologous Platelets into Peripheral Vein, Percutaneous Approach (ICD-10-PCS; 2020-02-19)
PROC: 0W3G0ZZ Control Bleeding in Peritoneal Cavity, Open Approach (ICD-10-PCS; 2020-02-19)
PROC: 0DBB0ZZ Excision of Ileum, Open Approach (ICD-10-PCS; principal; 2020-02-19 12:54)
PROC: 02HV33Z Insertion of Infusion Device into Superior Vena Cava, Percutaneous Approach (ICD-10-PCS; 2020-02-23)
PROC: B548ZZA Ultrasonography of Superior Vena Cava, Guidance (ICD-10-PCS; 2020-02-23)
DX: K94.02 Colostomy infection (principal); B37.9 Candidiasis, unspecified; D63.8 Anemia in other chronic diseases classified elsewhere; E43 Unspecified severe protein-calorie malnutrition; Z68.23 Body mass index [BMI] 23.0-23.9, adult; E78.5 Hyperlipidemia, unspecified; E83.52 Hypercalcemia; E87.1 Hypo-osmolality and hyponatremia; E87.5 Hyperkalemia; I13.0 Hypertensive heart and chronic kidney disease with heart failure and stage 1 through stage 4 chronic kidney disease, or unspecified chronic kidney disease; I25.10 Atherosclerotic heart disease of native coronary artery without angina pectoris; I50.22 Chronic systolic (congestive) heart failure; J44.9 Chronic obstructive pulmonary disease, unspecified; K56.609 Unspecified intestinal obstruction, unspecified as to partial versus complete obstruction; K56.7 Ileus, unspecified; K91.840 Postprocedural hemorrhage of a digestive system organ or structure following a digestive system procedure; N17.9 Acute kidney failure, unspecified; E87.2 Acidosis; Y83.3 Surgical operation with formation of external stoma as the cause of abnormal reaction of the patient, or of later complication, without mention of misadventure at the time of the procedure; J96.00 Acute respiratory failure, unspecified whether with hypoxia or hypercapnia; N18.9 Chronic kidney disease, unspecified; I25.2 Old myocardial infarction; Z79.02 Long term (current) use of antithrombotics/antiplatelets; Z79.82 Long term (current) use of aspirin; Z79.899 Other long term (current) drug therapy; Z80.8 Family history of malignant neoplasm of other organs or systems; Z82.49 Family history of ischemic heart disease and other diseases of the circulatory system; Z95.5 Presence of coronary angioplasty implant and graft; Y92.89 Other specified places as the place of occurrence of the external cause; R57.8 Other shock; E87.0 Hyperosmolality and hypernatremia; E87.6 Hypokalemia; I82.623 Acute embolism and thrombosis of deep veins of upper extremity, bilateral
CPT/HCPCS: 36415; 36430; 36573; 36600; 71045; 74018; 74176; 74248; 74270; 76937; 80053; 80061; 80202; 82803; 82948; 83036; 83605; 83735; 84100; 84132; 84134; 84478; 85008; 85018; 85025; 85027; 85610; 85730; 86885; 86900; 86901; 86920; 87040; 87070; 87081; 93005; 93971; 94002; 94003; 94640; 94667; 94668; 94760; 97110; 97116; 97161; 97164; 97530; 97535; 99285; A4215; A4618; A6253; A6446; A7000; C9113; G0378; J0696; J1170; J1644; J2175; J2250; J2270; J2543; J2704; J2710; J3010; J3370; J3475; J3480; J3490; J7030; J7050; J7060; J7070; J7120; J7999; P9016; P9035; P9059; Q9963

== ENCOUNTER 2021-02-24 11:55 | Inpatient (IN) | payer MEDICAID ==
[~2021-02-24] VITALS: Ht 170.2 cm; Wt 70.2 kg
[2021-02-24] VITALS (8 sets, daily range): BP systolic 95–116; BP diastolic 55–65
[~2021-02-24 11:55] MED LIST changes: +APIX5TAB3 PO; +ATOR40TA71 PO; -BARIUM SULFATE/METHYLCELLULOSE 600 ML SUSPENSION BOTTLE**DONT ENTER PO ONE; +CARV6.253 PO; +CLOP75TA33 PO; +LISI-790 PO; +MAGN64TA10 PO; +NITR0.4T48 SL; +OXYC-145 PO; +VITA-268 PO; -etomidate 2mg/ml inj. ONE
[2021-02-24] MEDS ORDERED: normal saline 1000ml 1,000 ML IVB ONE (12:25)
--- NOTE | 2021-02-24 12:32 | NUR ---
[facility] [place] room in ER. Medic states that patients blood pressure is 79/[address] Snyder aware of patient transfer from [facility]. Dr. Snyder requested that verbal order be placed for 1 L NS bolus once now and ER Sepsis protocol be placed on patient. Ok to use PICC line per Dr. Snyder.
[2021-02-24 12:57] LABS: WHITE BLOOD COUNT 11.1 X10'3 (4.5-11.0)
[2021-02-24 12:59] LABS: MEAN CORPUSCULAR HEMOGLOBIN 30.5 PG (27.0-31.0); MEAN CORPUSCULAR VOLUME 95.4 FL (78-98); MEAN PLATELET VOLUME 7.3 FL (7.4-10.4); PLATELET COUNT 183 X10'3 (140-440); RED BLOOD COUNT 2.07 X10'6 (4.70-6.10); RED CELL DISTRIBUTION WIDTH 17.7 % (11.5-14.5)
[2021-02-24 13:02] LABS: HEMATOCRIT 19.7 % (42.0-52.0); HEMOGLOBIN 6.3 g/dl (14.0-17.9)
[2021-02-24 13:18] LABS: ANISOCYTOSIS 1+; PLATELET ESTIMATE NORMAL; TOTAL CELLS COUNTED 100
[2021-02-24 13:20] LABS: BURR CELLS 1+; POLYCHROMASIA FEW
[2021-02-24 13:24] LABS: ALANINE AMINOTRANSFERASE 8 U/L (12-78); ALBUMIN 1.1 G/DL (3.4-5.0); ALBUMIN/GLOBULIN RATIO 0.3 (1.1-1.5); ALKALINE PHOSPHATASE 207 IU/L (46-116); ANION GAP 6 (8-16); ASPARTATE AMINO TRANSFERASE 18 U/L (10-37); BILIRUBIN,TOTAL 0.3 MG/DL (0.1-1.0); BLOOD UREA NITROGEN 5 MG/DL (7-18); BUN/CREATININE RATIO 8.8 (5.4-32.0); CALCIUM 7.1 MG/DL (8.5-10.1); CHLORIDE 101 MMOL/L (99-107); CREATININE 0.57 MG/DL (0.60-1.10); GLUCOSE 107 MG/DL (70-104); POTASSIUM 3.4 MMOL/L (3.5-5.1); SODIUM 132 MMOL/L (135-145); TOTAL PROTEIN 4.6 G/DL (6.4-8.2); eGFR > 90 ML/MIN
[2021-02-24] MEDS ORDERED: oxyCODONE/APAP 10/325mg tablet PO ONE (17:05)
[2021-02-24] MEDS ORDERED: magnesium 2GM in 50ml NS 50 ML IV PRN (19:55)
[2021-02-24] MEDS ORDERED: magnesium Cl slow-release 64mg tablet PO PRN (19:55)
[2021-02-24] MEDS ORDERED: potassium Cl 20 mEq SR tablet PO PRN ×2 (19:55)
[2021-02-24] MEDS ORDERED: potassium Cl 40MEQ/1/2NS 520ml 520 ML IV PRN ×2 (19:55)
[2021-02-24] MEDS ORDERED: acetaminophen 325mg tablet PO PRN (19:55)
[2021-02-24] MEDS ORDERED: mag hydrox/Alum hydrox/simeth 30ml oral suspension PO PRN (19:55)
[2021-02-24] MEDS ORDERED: magnesium hydroxide 30ml (MOM) UD suspension PO PRN (19:55)
[2021-02-24] MEDS: docusate sod 100mg capsule PO SCH (20:00)
[2021-02-24] MEDS: dextrose 5%-1/2 normal saline 1,000 ML IV SCH (22:25)
[2021-02-24] MEDS: K and/or MAG REPLACEMENT MC SCH (23:16)
[2021-02-25] MEDS: HYDROcodone/acetaminophen 5mg/325mg tablet PO PRN ×2 (00:59→21:49)
[2021-02-25 04:41] LABS: BASOPHILS % (AUTO) 0.5 % (0-1); EOSINOPHILS # (AUTO) 0.3 X10'3 (0-0.9); HEMATOCRIT 24.6 % (42.0-52.0); LYMPHOCYTES # (AUTO) 1.2 X10'3 (1.1-4.8)
[2021-02-25 04:43] LABS: EOSINOPHILS % (AUTO) 3.6 % (0-6); HEMOGLOBIN 8.4 g/dl (14.0-17.9); LYMPHOCYTES % (AUTO) 13.4 % (21-51); MEAN CORPUSCULAR HEMOGLOBIN 30.6 PG (27.0-31.0); MEAN CORPUSCULAR VOLUME 89.9 FL (78-98); MEAN PLATELET VOLUME 7.3 FL (7.4-10.4); MONOCYTES # (AUTO) 1.6 X10'3 (0-0.9); MONOCYTES % (AUTO) 17.9 % (2-12); NEUTROPHILS # (AUTO) 5.9 X10'3 (1.8-7.7); NEUTROPHILS % (AUTO) 64.6 % (42-75); PLATELET COUNT 158 X10'3 (140-440); RED BLOOD COUNT 2.74 X10'6 (4.70-6.10); RED CELL DISTRIBUTION WIDTH 18.2 % (11.5-14.5); WHITE BLOOD COUNT 9.1 X10'3 (4.5-11.0)
[2021-02-25 05:33] LABS: TOTAL CELLS COUNTED 100
[2021-02-25 05:34] LABS: ANISOCYTOSIS 2+; PLATELET ESTIMATE NORMAL; POLYCHROMASIA FEW
[2021-02-25 05:35] LABS: BURR CELLS FEW
[2021-02-25] MEDS: morphine 2 MG/ML inj. syringe IV PRN ×2 (06:56→18:36)
[2021-02-25] MEDS: dextrose 5%-1/2 normal saline 1,000 ML IV SCH ×2 (06:56→21:55)
[2021-02-25] MEDS: magnesium 4gm in 100ml NS 100 ML IV PRN (07:40)
[2021-02-25 07:46] LABS: % IRON SATURATION 108 % (11-46); IRON 64 UG/DL (53-167); TOTAL IRON BINDING CAPACITY 59 UG/DL (259-388)
[2021-02-25] MEDS: docusate sod 100mg capsule PO SCH (08:00)
[2021-02-25] MEDS: K and/or MAG REPLACEMENT MC SCH ×2 (08:31→20:00)
--- NOTE | 2021-02-25 09:21 | NUR ---
Patient requesting pain medication 2 hours after morphine given. Patient is NPO and no orders are clear on instructions for NG tube. Dr. Leahy updated. Per MD no new orders to be placed for pain medication. MD needs to speak with surgery to determine plan of care.
[2021-02-25] MEDS ORDERED: MIRT-87 PO (10:31)
[2021-02-25] MEDS ORDERED: GABA300C PO (10:31)
--- NOTE | 2021-02-25 13:30 | NUR ---
Pt is awake and alert. NGT is clamped, kc is draining clear ledy urine.
--- NOTE | 2021-02-25 17:44 | NUR ---
Ostomy drained of 300ml of dark green liquid.
[2021-02-25] MEDS: CefTRIAXone 2gm/D5W 50ml BAG 50 ML IV SCH (18:23)
[2021-02-25] MEDS: apixaban 5mg tablet PO SCH ×2 (18:23→19:31)
[2021-02-25] MEDS: carvedilol 6.25mg tablet PO SCH ×2 (18:24→19:31)
[2021-02-25] MEDS: linezolid 600mg tablet PO SCH ×2 (18:24→22:57)
--- NOTE | 2021-02-25 18:57 | NUR ---
Pt was turned and cleaned. Pt is oozing serious fluid from his sofía-area. Pt has dependant edema. Scrotum and penis have edema.
--- NOTE | 2021-02-25 19:00 | NUR ---
BE, to give po meds via NGT. Addendum: 02/25/21 at 1933 by NADIA BE per Dr. Leahy to give PO meds via NGT.
[2021-02-25] MEDS ORDERED: diatrozoate meglu/diatrozoate sod (37% iodine) 120ML oral solution PO ONE (21:00)
[2021-02-25] MEDS ORDERED: diatr meglu/diatrizoate 30ml oral sol.-(3 dose) bottle PO ONE (21:40)
[2021-02-25] MEDS: mirtazapine 15mg tablet PO SCH (21:48)
[2021-02-25] MEDS: gabapentin 300mg capsule PO SCH (21:48)
[2021-02-26] MEDS: dextrose 5%-1/2 normal saline 1,000 ML IV SCH ×3 (01:55→21:55)
[2021-02-26] MEDS: docusate sod 100mg capsule PO SCH ×3 (08:00→20:00)
[2021-02-26] MEDS: K and/or MAG REPLACEMENT MC SCH ×2 (08:00→20:00)
[2021-02-26] MEDS: gabapentin 300mg capsule PO SCH ×3 (08:00→21:00)
[2021-02-26 09:30] VITALS: BP 148/72
[2021-02-26] MEDS ORDERED: diatr meglu/diatrizoate 30ml oral sol.-(3 dose) bottle ONE (09:40)
[2021-02-26] MEDS ORDERED: diatrozoate meglu/diatrozoate sod (37% iodine) 120ML oral solution PO ONE (09:55)
[2021-02-26 11:00] VITALS: BP 130/65
[2021-02-26] MEDS: clopidogrel 75mg tablet PO SCH (12:51)
[2021-02-26] MEDS: carvedilol 6.25mg tablet PO SCH ×2 (12:51→20:00)
[2021-02-26] MEDS: apixaban 5mg tablet PO SCH ×2 (12:51→20:00)
[2021-02-26] MEDS: lisinopril 5mg tablet PO SCH (12:52)
[2021-02-26] MEDS: atorvastatin 20mg tablet PO SCH (12:52)
--- NOTE | 2021-02-26 13:12 | NUR ---
PAGER ID: [phone] MESSAGE: ANSLEY ON [email or web address], [phone] MR. MONTAÑO WAS APPARENTLY ON TPN AT [facility]. DO WE WANT A NUTRITIONAL CONSULT AND TPN TO CONTINUE?
[2021-02-26] MEDS: CefTRIAXone 2gm/D5W 50ml BAG 50 ML IV SCH (13:21)
--- NOTE | 2021-02-26 14:45 | NUR ---
page for higher dose pain med PAGER ID: [phone] MESSAGE: room 3024P Gualberto Arnold patient has [place] 5 and reports it not working. May I order him [place] 10? patient states not wanting morphine because it does not work for a long enough duration. thank you, Valarie MAYS
[2021-02-26 15:00] VITALS: BP 135/68
--- NOTE | 2021-02-26 15:25 | NUR ---
TPN consult: Pt admitted w/ SBO and post-op complications. Pt has undergone exploratory laparotomy, enterolysis, pelvic abscess drainage, partial colectomy, and creation of a colostomy on 01/21 per ED note. Pt has been at since 02/17 and was receiving TPN while there. Pt remains NPO w/ NGT for suctioning, though no output per RN. Pt w/ PICC line and TPN likely to start tomorrow per RN, recs below. Unable to obtain wt hx or prior PO intake from pt, though visible muscle waisting of temples observed at bedside. Pending physical assessment. Unable to fully assess pt for malnutrition d/t limited information. Will continue to monitor. Recs: TPN per MD via PICC using 2:1 Clinimix E /15 at 70ml/hr goal w/ separate 100ml 20% intralipids to run for 12 hours daily at 20.83ml/hr. In total; to provide 1680ml volume, 84g AA, 252g DEX (2.50mg/kg/min), and 1692 total kcals. Initiate at 30ml/hr and if tolerated Q12H advance to goal rate. 2. TG/PALB Q /; daily wts 3. monitor for PN adjustment needs as medically indicated 4. bowel care per rx Addendum: 02/26/21 at [address] Amended: Links added.
[2021-02-26] MEDS ORDERED: magnesium 4gm in 100ml NS 100 ML IV PRN (15:35)
[2021-02-26] MEDS ORDERED: magnesium 2GM in 50ml NS 50 ML IV PRN (15:35)
[2021-02-26] MEDS ORDERED: magnesium Cl slow-release 64mg tablet PO PRN (15:35)
[2021-02-26] MEDS ORDERED: Dextrose 10%-water IV solution 1,000 ML IV PRN ×3 (15:35)
[2021-02-26] MEDS ORDERED: ZINC/COPPER/MANGANESE/SELENIUM 1 ML, chromic chloride inj. 10 MCG in AA 5%/cal/electrol... IV SCH ×2 (16:00→20:00)
[2021-02-26] MEDS: HYDROcodone/acetaminophen 10/325mg tab PO PRN ×2 (16:32→23:51)
[2021-02-26 16:59] LABS: BASOPHILS % (AUTO) 0.3 % (0-1); EOSINOPHILS # (AUTO) 0.1 X10'3 (0-0.9); EOSINOPHILS % (AUTO) 1.3 % (0-6); HEMATOCRIT 27.4 % (42.0-52.0); HEMOGLOBIN 9.3 g/dl (14.0-17.9); LYMPHOCYTES # (AUTO) 1.4 X10'3 (1.1-4.8); LYMPHOCYTES % (AUTO) 16.2 % (21-51); MEAN CORPUSCULAR HEMOGLOBIN 30.4 PG (27.0-31.0); MEAN CORPUSCULAR HGB CONC 34.1 g/dL (33.0-36.5); MEAN CORPUSCULAR VOLUME 89.3 FL (78-98); MONOCYTES # (AUTO) 1.7 X10'3 (0-0.9); MONOCYTES % (AUTO) 19.2 % (2-12); NEUTROPHILS # (AUTO) 5.5 X10'3 (1.8-7.7); PLATELET COUNT 168 X10'3 (140-440); RED BLOOD COUNT 3.07 X10'6 (4.70-6.10); RED CELL DISTRIBUTION WIDTH 17.4 % (11.5-14.5); WHITE BLOOD COUNT 8.7 X10'3 (4.5-11.0)
[2021-02-26 17:11] LABS: ALANINE AMINOTRANSFERASE 13 U/L (12-78); ALBUMIN 1.1 G/DL (3.4-5.0); ALBUMIN/GLOBULIN RATIO 0.3 (1.1-1.5); ALKALINE PHOSPHATASE 227 IU/L (46-116); ANION GAP 6 (8-16); ASPARTATE AMINO TRANSFERASE 23 U/L (10-37); BILIRUBIN,TOTAL 0.3 MG/DL (0.1-1.0); BLOOD UREA NITROGEN 3 MG/DL (7-18); BUN/CREATININE RATIO 6.3 (5.4-32.0); CALCIUM 7.2 MG/DL (8.5-10.1); CHLORIDE 104 MMOL/L (99-107); CREATININE 0.48 MG/DL (0.60-1.10); GLUCOSE 110 MG/DL (70-104); MAGNESIUM 1.6 MG/DL (1.5-2.4); PHOSPHORUS 3.6 MG/DL (2.3-4.5); POTASSIUM 3.2 MMOL/L (3.5-5.1); PREALBUMIN 7.7 MG/DL (19-36); SODIUM 135 MMOL/L (135-145); TOTAL CARBON DIOXIDE 25.3 MMOL/L (24-32); TOTAL PROTEIN 4.8 G/DL (6.4-8.2); TRIGLYCERIDES 72 MG/DL (20-135); eGFR > 90 ML/MIN
[2021-02-26 19:00] VITALS: BP 165/62
[2021-02-26] MEDS: linezolid 600mg tablet PO SCH (20:00)
[2021-02-26] MEDS ORDERED: ZINC/COPPER/MANGANESE/SELENIUM 0.5 ML, chromic chloride inj. 5 MCG in AA 5%/cal/electro... IV SCH (20:00)
[2021-02-26] MEDS: fat emulsion IV bag 250 ML IV SCH (20:35)
[2021-02-26] MEDS: mirtazapine 15mg tablet PO SCH (21:00)
[2021-02-26] MEDS: diatr meglu/diatrizoate 30ml oral sol.-(3 dose) bottle PO SCH (21:00)
[2021-02-27 03:05] VITALS: BP 121/53
[2021-02-27 06:00] VITALS: BP 116/61
[2021-02-27] MEDS: dextrose 5%-1/2 normal saline 1,000 ML IV SCH ×2 (07:55→21:25)
[2021-02-27] MEDS: diatr meglu/diatrizoate 30ml oral sol.-(3 dose) bottle PO SCH ×2 (07:56→12:05)
[2021-02-27] MEDS: CefTRIAXone 2gm/D5W 50ml BAG 50 ML IV SCH (07:57)
[2021-02-27] MEDS: docusate sod 100mg capsule PO SCH ×2 (08:00→20:00)
[2021-02-27] MEDS: K and/or MAG REPLACEMENT MC SCH (08:00)
[2021-02-27] MEDS: linezolid 600mg tablet PO SCH ×2 (08:00→23:34)
[2021-02-27] MEDS: apixaban 5mg tablet PO SCH ×2 (08:45→23:33)
[2021-02-27] MEDS: carvedilol 6.25mg tablet PO SCH ×2 (08:46→23:30)
[2021-02-27] MEDS: lisinopril 5mg tablet PO SCH (08:46)
[2021-02-27] MEDS: gabapentin 300mg capsule PO SCH ×3 (08:46→23:35)
[2021-02-27] MEDS: clopidogrel 75mg tablet PO SCH (08:46)
[2021-02-27] MEDS: atorvastatin 20mg tablet PO SCH ×2 (08:47→23:33)
[2021-02-27] MEDS ORDERED: oxyCODONE/APAP 5-325mg tablet PO PRN (10:50)
[2021-02-27 11:00] VITALS: BP 120/62
--- NOTE | 2021-02-27 11:34 | NUR ---
F/u 02/27: Pt states he may have lost 5lb in the last month because he was "NPO at [facility]" though unsure of the exact amount. Pt refused full NFPE, per physical assessment BLER 2+ edema. Pt has been receiving TPN for the last week at [facility] and is currently on TPN. Given Pt's nutritional needs being met via TPN prior to admit, pt does not meet minimum criteria for malnutrition at this time. Addendum: 02/27/21 at [address] Amended: Links added.
[2021-02-27] MEDS: oxyCODONE/APAP 10/325mg tablet PO PRN ×2 (12:07→23:42)
[2021-02-27 15:00] VITALS: BP 114/48
[2021-02-27 15:05] LABS: EOSINOPHILS # (AUTO) 0.1 X10'3 (0-0.9); EOSINOPHILS % (AUTO) 1.3 % (0-6); HEMOGLOBIN 8.2 g/dl (14.0-17.9); MONOCYTES # (AUTO) 1.9 X10'3 (0-0.9)
[2021-02-27 15:06] LABS: BASOPHILS % (AUTO) 0.4 % (0-1); HEMATOCRIT 24.8 % (42.0-52.0); LYMPHOCYTES # (AUTO) 1.4 X10'3 (1.1-4.8); LYMPHOCYTES % (AUTO) 17.7 % (21-51); MEAN CORPUSCULAR HEMOGLOBIN 29.8 PG (27.0-31.0); MEAN CORPUSCULAR HGB CONC 33.1 g/dL (33.0-36.5); MEAN CORPUSCULAR VOLUME 89.9 FL (78-98); MEAN PLATELET VOLUME 8.5 FL (7.4-10.4); MONOCYTES % (AUTO) 23.6 % (2-12); NEUTROPHILS # (AUTO) 4.5 X10'3 (1.8-7.7); PLATELET COUNT 174 X10'3 (140-440); RED BLOOD COUNT 2.75 X10'6 (4.70-6.10); RED CELL DISTRIBUTION WIDTH 17.4 % (11.5-14.5)
[2021-02-27 15:23] LABS: ALANINE AMINOTRANSFERASE 9 U/L (12-78); ALBUMIN/GLOBULIN RATIO 0.3 (1.1-1.5); ALKALINE PHOSPHATASE 198 IU/L (46-116); ANION GAP 7 (8-16); ASPARTATE AMINO TRANSFERASE 24 U/L (10-37); BILIRUBIN,TOTAL 0.1 MG/DL (0.1-1.0); BLOOD UREA NITROGEN 2 MG/DL (7-18); CALCIUM 7.1 MG/DL (8.5-10.1); CHLORIDE 105 MMOL/L (99-107); GLUCOSE 119 MG/DL (70-104); MAGNESIUM 1.4 MG/DL (1.5-2.4); PHOSPHORUS 3.7 MG/DL (2.3-4.5); PREALBUMIN 8.8 MG/DL (19-36); SODIUM 136 MMOL/L (135-145); TOTAL CARBON DIOXIDE 24.1 MMOL/L (24-32); TOTAL PROTEIN 4.5 G/DL (6.4-8.2); TRIGLYCERIDES 57 MG/DL (20-135); eGFR > 90 ML/MIN
[2021-02-27 15:24] LABS: POTASSIUM 3.1 MMOL/L (3.5-5.1)
[2021-02-27] MEDS: magnesium 4gm in 100ml NS 100 ML IV PRN (17:03)
[2021-02-27 18:00] VITALS: BP 99/44
--- NOTE | 2021-02-27 18:30 | NUR ---
Patient in room PCU 3023. I have received report from Valarie MAYS and had the opportunity to ask questions and assume patient care.
[2021-02-27] MEDS: fat emulsion IV bag 250 ML IV SCH (21:27)
[2021-02-27] MEDS: ZINC/COPPER/MANGANESE/SELENIUM 0.5 ML, chromic chloride inj. 5 MCG in AA 5%/cal/electro... IV SCH (21:39)
[2021-02-27 23:15] VITALS: BP 124/64
[2021-02-27] MEDS: mirtazapine 15mg tablet PO SCH (23:31)
[2021-02-27] MEDS ORDERED: potassium Cl 20 mEq SR tablet PO PRN ×2 (23:55)
[2021-02-27] MEDS ORDERED: potassium Cl 40MEQ/1/2NS 520ml 520 ML IV PRN ×2 (23:55)
[2021-02-28 02:00] VITALS: BP 118/60
[2021-02-28] MEDS: K and/or MAG REPLACEMENT MC SCH ×5 (03:00→20:00)
[2021-02-28] MEDS: dextrose 5%-1/2 normal saline 1,000 ML IV SCH ×3 (03:55→21:29)
[2021-02-28] MEDS: oxyCODONE/APAP 10/325mg tablet PO PRN ×3 (05:19→19:49)
[2021-02-28 06:00] VITALS: BP 108/61
[2021-02-28 06:37] LABS: ALANINE AMINOTRANSFERASE 9 U/L (12-78); ALBUMIN/GLOBULIN RATIO 0.3 (1.1-1.5); ALKALINE PHOSPHATASE 188 IU/L (46-116); ANION GAP 7 (8-16); ASPARTATE AMINO TRANSFERASE 19 U/L (10-37); BILIRUBIN,TOTAL 0.1 MG/DL (0.1-1.0); BLOOD UREA NITROGEN 3 MG/DL (7-18); BUN/CREATININE RATIO 6.5 (5.4-32.0); CALCIUM 7.1 MG/DL (8.5-10.1); CHLORIDE 108 MMOL/L (99-107); CREATININE 0.46 MG/DL (0.60-1.10); GLUCOSE 108 MG/DL (70-104); MAGNESIUM 1.9 MG/DL (1.5-2.4); PHOSPHORUS 3.6 MG/DL (2.3-4.5); POTASSIUM 3.5 MMOL/L (3.5-5.1); SODIUM 140 MMOL/L (135-145); TOTAL CARBON DIOXIDE 25.2 MMOL/L (24-32); TOTAL PROTEIN 4.5 G/DL (6.4-8.2); eGFR > 90 ML/MIN
[2021-02-28 06:47] LABS: BASOPHILS % (AUTO) 0.2 % (0-1); EOSINOPHILS # (AUTO) 0.1 X10'3 (0-0.9); HEMOGLOBIN 8.2 g/dl (14.0-17.9)
[2021-02-28 06:50] LABS: EOSINOPHILS % (AUTO) 1.5 % (0-6); HEMATOCRIT 24.7 % (42.0-52.0); LYMPHOCYTES # (AUTO) 1.6 X10'3 (1.1-4.8); LYMPHOCYTES % (AUTO) 18.2 % (21-51); MEAN CORPUSCULAR HEMOGLOBIN 30.4 PG (27.0-31.0); MEAN CORPUSCULAR HGB CONC 33.1 g/dL (33.0-36.5); MEAN CORPUSCULAR VOLUME 91.8 FL (78-98); MONOCYTES # (AUTO) 2.3 X10'3 (0-0.9); MONOCYTES % (AUTO) 26.4 % (2-12); NEUTROPHILS # (AUTO) 4.6 X10'3 (1.8-7.7); NEUTROPHILS % (AUTO) 53.7 % (42-75); PLATELET COUNT 173 X10'3 (140-440); WHITE BLOOD COUNT 8.6 X10'3 (4.5-11.0)
--- NOTE | 2021-02-28 06:50 | NUR ---
Patient report given to Seth MAYS.
--- NOTE | 2021-02-28 07:26 | NUR ---
As patient was able to swallow pills last night, I did not replace NG tube.
--- NOTE | 2021-02-28 07:43 | NUR ---
Dr. Austin paged: Gualberto Warner [phone]: NG tube plugged. is it OK to D/C or would you like a new one placed? [id number]
[2021-02-28] MEDS ORDERED: MVI, adult No.4 with vit. K 10 ML in dextrose 5% water 500ml 490 ML IV SCH ×2 (08:00)
--- NOTE | 2021-02-28 08:05 | NUR ---
ATTEMPTED TO GET A WEIGHT ON STANDING SCALE, PT SAYS THEY DO NOT FEEL COMFORTABLE STANDING. BED SCALE DOES NOT WORK.
[2021-02-28] MEDS: CefTRIAXone 2gm/D5W 50ml BAG 50 ML IV SCH (08:26)
[2021-02-28] MEDS: clopidogrel 75mg tablet PO SCH (08:40)
[2021-02-28] MEDS: lisinopril 5mg tablet PO SCH (08:40)
[2021-02-28] MEDS: apixaban 5mg tablet PO SCH ×2 (08:40→19:45)
[2021-02-28] MEDS: gabapentin 300mg capsule PO SCH ×3 (08:45→21:27)
[2021-02-28] MEDS: docusate sod 100mg capsule PO SCH ×2 (08:46→19:45)
[2021-02-28] MEDS: linezolid 600mg tablet PO SCH ×2 (08:51→19:45)
[2021-02-28 11:00] VITALS: BP 118/63
[2021-02-28] MEDS: carvedilol 6.25mg tablet PO SCH ×2 (11:36→19:45)
[2021-02-28] MEDS: ondansetron/PF 4mg/2ml inj IV PRN ×2 (11:37→19:49)
[2021-02-28] MEDS: ZINC/COPPER/MANGANESE/SELENIUM 0.5 ML, chromic chloride inj. 5 MCG in AA 5%/cal/electro... IV SCH (11:38)
[2021-02-28 14:01] LABS: TOTAL CELLS COUNTED 100
[2021-02-28 14:02] LABS: ANISOCYTOSIS 1+; BURR CELLS 1+; PLATELET ESTIMATE NORMAL
[2021-02-28 14:03] LABS: SCHISTOCYTES FEW
[2021-02-28 16:00] VITALS: BP 138/73
[2021-02-28 18:00] VITALS: BP 153/75
--- NOTE | 2021-02-28 18:41 | NUR ---
Problems reprioritized. Patient report given, questions answered & plan of care reviewed with Joelle MAYS.
--- NOTE | 2021-02-28 18:41 | NUR ---
Patient in room PCU 3023C. I have received report from TABATHA Ann and had the opportunity to ask questions and assume patient care.
[2021-02-28] MEDS: fat emulsion IV bag 250 ML IV SCH (19:45)
[2021-02-28] MEDS: mirtazapine 15mg tablet PO SCH (21:27)
[2021-02-28 22:00] VITALS: BP 117/69
[2021-03-01] MEDS: morphine 2 MG/ML inj. syringe IV PRN ×2 (00:10→22:40)
[2021-03-01] MEDS: ZINC/COPPER/MANGANESE/SELENIUM 0.5 ML, chromic chloride inj. 5 MCG in AA 5%/cal/electro... IV SCH (01:57)
[2021-03-01 02:00] VITALS: BP 116/65
[2021-03-01 03:28] LABS: BASOPHILS # (AUTO) 0.1 X10'3 (0-0.2); BASOPHILS % (AUTO) 0.6 % (0-1); EOSINOPHILS # (AUTO) 0.3 X10'3 (0-0.9); EOSINOPHILS % (AUTO) 2.6 % (0-6); HEMATOCRIT 24.5 % (42.0-52.0); HEMOGLOBIN 7.8 g/dl (14.0-17.9); LYMPHOCYTES # (AUTO) 1.7 X10'3 (1.1-4.8); LYMPHOCYTES % (AUTO) 15.1 % (21-51); MEAN CORPUSCULAR HEMOGLOBIN 29.3 PG (27.0-31.0); MEAN CORPUSCULAR HGB CONC 31.9 g/dL (33.0-36.5); MEAN PLATELET VOLUME 9.2 FL (7.4-10.4); MONOCYTES # (AUTO) 2.1 X10'3 (0-0.9); MONOCYTES % (AUTO) 19.4 % (2-12); NEUTROPHILS # (AUTO) 6.9 X10'3 (1.8-7.7); NEUTROPHILS % (AUTO) 62.3 % (42-75); PLATELET COUNT 236 X10'3 (140-440); RED BLOOD COUNT 2.66 X10'6 (4.70-6.10)
[2021-03-01 03:42] LABS: ALANINE AMINOTRANSFERASE 10 U/L (12-78); ALBUMIN 1.1 G/DL (3.4-5.0); ALBUMIN/GLOBULIN RATIO 0.3 (1.1-1.5); ALKALINE PHOSPHATASE 180 IU/L (46-116); ANION GAP 5 (8-16); ASPARTATE AMINO TRANSFERASE 22 U/L (10-37); BILIRUBIN,TOTAL 0.2 MG/DL (0.1-1.0); BLOOD UREA NITROGEN 5 MG/DL (7-18); BUN/CREATININE RATIO 12.2 (5.4-32.0); CALCIUM 7.3 MG/DL (8.5-10.1); CHLORIDE 106 MMOL/L (99-107); CREATININE 0.41 MG/DL (0.60-1.10); GLUCOSE 109 MG/DL (70-104); MAGNESIUM 1.5 MG/DL (1.5-2.4); POTASSIUM 3.6 MMOL/L (3.5-5.1); SODIUM 137 MMOL/L (135-145); TOTAL CARBON DIOXIDE 26.1 MMOL/L (24-32); TOTAL PROTEIN 4.7 G/DL (6.4-8.2); eGFR > 90 ML/MIN
[2021-03-01] MEDS: oxyCODONE/APAP 10/325mg tablet PO PRN ×2 (04:29→18:59)
[2021-03-01 04:45] LABS: ANISOCYTOSIS 1+; BANDS% (MANUAL) 1 % (0-10); LYMPHOCYTES % (MANUAL) 6 % (21-51); METAMYLEOCYTES% (MANUAL) 2 % (0-0); MONOCYTES % (MANUAL) 13 % (2-12); NEUTROPHILS % (MANUAL) 78 % (42-75); PLATELET ESTIMATE NORMAL; TOTAL CELLS COUNTED 100
[2021-03-01 06:00] VITALS: BP 107/58
--- NOTE | 2021-03-01 06:30 | NUR ---
Problems reprioritized. Patient report given, questions answered & plan of care reviewed with TABATHA Ann.
[2021-03-01] MEDS: K and/or MAG REPLACEMENT MC SCH ×4 (08:00→20:00)
[2021-03-01] MEDS: CefTRIAXone 2gm/D5W 50ml BAG 50 ML IV SCH (08:59)
[2021-03-01] MEDS: lisinopril 5mg tablet PO SCH (09:04)
[2021-03-01] MEDS: carvedilol 6.25mg tablet PO SCH ×2 (09:04→20:09)
[2021-03-01] MEDS: clopidogrel 75mg tablet PO SCH (09:05)
[2021-03-01] MEDS: atorvastatin 20mg tablet PO SCH (09:05)
[2021-03-01] MEDS: gabapentin 300mg capsule PO SCH ×3 (09:05→22:01)
[2021-03-01] MEDS: apixaban 5mg tablet PO SCH ×2 (09:05→20:09)
[2021-03-01] MEDS: linezolid 600mg tablet PO SCH ×2 (09:05→20:10)
[2021-03-01] MEDS: docusate sod 100mg capsule PO SCH ×2 (09:05→20:00)
[2021-03-01] MEDS: dextrose 5%-1/2 normal saline 1,000 ML IV SCH ×2 (09:55→20:14)
[2021-03-01 11:00] VITALS: BP 111/64
--- NOTE | 2021-03-01 12:13 | NUR ---
Reassessment: Per MD note surgeon assessed that the patient likely does not have a bowel obstruction any longer. New orders in place in EMR to remove NG tube and PO diet has been advanced to clear liquids, pending first meal since diet advancement. Per bedside RN pt to continue with TPN in conjunction to PO diet. D/w RN recommendation to continue nutrition support until adequate PO intake can be assured with PO diet advancement. Noted pt continues receiving dext/NS at 100 mL/hr, recommend discontinuing given pt receiving TPN. LBM 02/28, documented with 150 mL stool output with sufficient stool output previous days per I&O. Will continue to follow closely. Recs: 1. TPN per MD via PICC using 2:1 Clinimix-E 10/29 at 70 mL/hr goal with separate 250 mL 20% intralipids to run for 12 hours daily at 20.83 mL/hr. In total; to provide 1930 mL volume, 84 g AA, 252 g dextrose (2.50 mg/kg/min dext load), and 1692 total kcal. 2. TG/PALB q /; daily scaled wts 3. Discontinue dext/NS at 100 mL/hr given pt receiving TPN 4. Bowel care per rx 5. PO diet advancement to regular as medically indicated 6. Continue nutrition support until pt with stable PO intake averaging 65% PO intake of meals with diet advancement 7. Low tyramine nutrition therapy education once appropriate Addendum: 03/01/21 at [address] Amended: Links added.
[2021-03-01] MEDS: ZINC/COPPER/MANGANESE/SELENIUM 1 ML, chromic chloride inj. 10 MCG in AA 5%/cal/electrol... IV SCH (14:44)
[2021-03-01 15:00] VITALS: BP 113/57
[2021-03-01 18:09] LABS: UA COLLECTION TYPE CLN CATCH MIDSTREAM
[2021-03-01 18:10] LABS: COLOR,URINE STRAW (Yellow)
[2021-03-01 18:11] LABS: CLARITY,URINE CLEAR (Clear)
[2021-03-01 18:12] LABS: GLUCOSE, URINE NEGATIVE (Neg); PROTEIN,URINE NEGATIVE (Neg)
[2021-03-01 18:13] LABS: KETONES,URINE NEGATIVE (Neg); LEUKOCYTE ESTERASE ,URINE SMALL (Neg); NITRITES, URINE NEGATIVE (Neg); OCCULT BLOOD,URINE NEGATIVE (Neg); UROBILINOGEN,URINE 0.2 E.U/dL (0.2-1.0)
[2021-03-01 18:14] LABS: MUCUS STRANDS NONE SEEN /LPF (Neg); SQUAMOUS EPITHELIAL CELL,UR FEW /LPF (FEW)
[2021-03-01 18:15] LABS: YEAST MANY /HPF (NEGATIVE)
[2021-03-01 18:16] LABS: BACTERIA,URINE FEW /HPF (Neg); RBC,URINE 0-2 /HPF (0-2); WBC,URINE 0-4 /HPF (0-4)
[2021-03-01 19:00] VITALS: BP 112/67
[2021-03-01] MEDS: fat emulsion IV bag 250 ML IV SCH (20:09)
[2021-03-01] MEDS: mirtazapine 15mg tablet PO SCH (22:01)
[2021-03-01] MEDS ORDERED: MVI, adult No.4 with vit. K 10 ML in dextrose 5% water 500ml 500 ML IV SCH ×2 (22:04)
[2021-03-01 23:00] VITALS: BP 140/66
[2021-03-02] MEDS: oxyCODONE/APAP 10/325mg tablet PO PRN ×3 (02:01→16:50)
[2021-03-02 02:40] VITALS: BP 136/69
[2021-03-02 06:00] VITALS: BP 131/79
[2021-03-02 06:37] LABS: BASOPHILS % (AUTO) 0.5 % (0-1); EOSINOPHILS # (AUTO) 0.4 X10'3 (0-0.9); EOSINOPHILS % (AUTO) 3.7 % (0-6); HEMOGLOBIN 7.6 g/dl (14.0-17.9); LYMPHOCYTES # (AUTO) 1.8 X10'3 (1.1-4.8); LYMPHOCYTES % (AUTO) 18.8 % (21-51); MEAN CORPUSCULAR HEMOGLOBIN 30.2 PG (27.0-31.0); MEAN CORPUSCULAR HGB CONC 32.9 g/dL (33.0-36.5); MEAN CORPUSCULAR VOLUME 91.9 FL (78-98); MONOCYTES # (AUTO) 1.8 X10'3 (0-0.9); MONOCYTES % (AUTO) 18.5 % (2-12); NEUTROPHILS # (AUTO) 5.6 X10'3 (1.8-7.7); NEUTROPHILS % (AUTO) 58.5 % (42-75); PLATELET COUNT 324 X10'3 (140-440); RED BLOOD COUNT 2.51 X10'6 (4.70-6.10); RED CELL DISTRIBUTION WIDTH 18.3 % (11.5-14.5); WHITE BLOOD COUNT 9.6 X10'3 (4.5-11.0)
[2021-03-02 07:13] LABS: ALANINE AMINOTRANSFERASE 16 U/L (12-78); ALBUMIN/GLOBULIN RATIO 0.3 (1.1-1.5); ALKALINE PHOSPHATASE 170 IU/L (46-116); ANION GAP 8 (8-16); ASPARTATE AMINO TRANSFERASE 29 U/L (10-37); BILIRUBIN,TOTAL 0.1 MG/DL (0.1-1.0); BLOOD UREA NITROGEN 7 MG/DL (7-18); BUN/CREATININE RATIO 16.7 (5.4-32.0); CALCIUM 7.3 MG/DL (8.5-10.1); CHLORIDE 106 MMOL/L (99-107); CREATININE 0.42 MG/DL (0.60-1.10); GLUCOSE 117 MG/DL (70-104); MAGNESIUM 1.4 MG/DL (1.5-2.4); PHOSPHORUS 3.7 MG/DL (2.3-4.5); POTASSIUM 3.6 MMOL/L (3.5-5.1); PREALBUMIN 11.4 MG/DL (19-36); SODIUM 138 MMOL/L (135-145); TOTAL CARBON DIOXIDE 24.3 MMOL/L (24-32); TOTAL PROTEIN 4.8 G/DL (6.4-8.2); TRIGLYCERIDES 96 MG/DL (20-135); eGFR > 90 ML/MIN
[2021-03-02] MEDS: gabapentin 300mg capsule PO SCH ×3 (07:40→20:16)
[2021-03-02] MEDS: apixaban 5mg tablet PO SCH ×2 (07:41→20:16)
[2021-03-02] MEDS: clopidogrel 75mg tablet PO SCH (07:41)
[2021-03-02] MEDS: linezolid 600mg tablet PO SCH (07:41)
[2021-03-02] MEDS: docusate sod 100mg capsule PO SCH ×2 (07:41→20:16)
[2021-03-02] MEDS: lisinopril 5mg tablet PO SCH (07:42)
[2021-03-02] MEDS: carvedilol 6.25mg tablet PO SCH ×2 (07:42→20:00)
[2021-03-02] MEDS: atorvastatin 20mg tablet PO SCH (07:43)
[2021-03-02] MEDS: CefTRIAXone 2gm/D5W 50ml BAG 50 ML IV SCH (07:44)
[2021-03-02] MEDS: morphine 2 MG/ML inj. syringe IV PRN (07:45)
[2021-03-02] MEDS: dextrose 5%-1/2 normal saline 1,000 ML IV SCH ×2 (07:57→15:55)
[2021-03-02] MEDS: K and/or MAG REPLACEMENT MC SCH ×4 (08:00→20:00)
[2021-03-02 11:00] VITALS: BP 112/52
[2021-03-02] MEDS ORDERED: magnesium 4gm in 100ml NS 100 ML IV PRN (11:00)
[2021-03-02] MEDS ORDERED: magnesium Cl slow-release 64mg tablet PO PRN (11:00)
[2021-03-02] MEDS ORDERED: magnesium Cl slow-release 64mg tablet PO SCH (11:00)
--- NOTE | 2021-03-02 13:37 | NUR ---
PAGER ID: [phone] MESSAGE: Room 1324E. Gualberto Arnold. Pt requesting dilaudid instead of morphine. Thanks, Abby [phone]
[2021-03-02] MEDS: HYDROmorphone inj. 0.5 MG/0.5 ML DISP.SYRIN IV PRN ×2 (13:59→20:15)
[2021-03-02 15:00] VITALS: BP 126/53
--- NOTE | 2021-03-02 16:17 | NUR ---
Called report to [facility] - spoke with Mariana. All questions. comments, and concerns answered at this time. Per ASHUTOSH [place] - personal belongings are still there for pt in questions. Called pts back to advise of personal belongings at [facility]. cell: [phone]
[2021-03-02] MEDS: ZINC/COPPER/MANGANESE/SELENIUM 1 ML, chromic chloride inj. 10 MCG in AA 5%/cal/electrol... IV SCH (16:45)
--- NOTE | 2021-03-02 18:23 | NUR ---
Problems reprioritized. Patient report given, questions answered & plan of care reviewed with TABATHA Moise.
--- NOTE | 2021-03-02 18:23 | NUR ---
Pt refused 0800, 1400 blood sugar check
[2021-03-02 19:00] VITALS: BP 104/47
[2021-03-02] MEDS: mirtazapine 15mg tablet PO SCH (20:16)
[2021-03-02] MEDS: fat emulsion IV bag 250 ML IV SCH (20:29)
[2021-03-02 22:00] VITALS: BP 116/62
[2021-03-03] MEDS: dextrose 5%-1/2 normal saline 1,000 ML IV SCH (01:55)
[2021-03-03] MEDS: HYDROmorphone inj. 0.5 MG/0.5 ML DISP.SYRIN IV PRN ×2 (01:57→08:37)
[2021-03-03 04:39] LABS: ALANINE AMINOTRANSFERASE 18 U/L (12-78); ALBUMIN 1.1 G/DL (3.4-5.0); ALBUMIN/GLOBULIN RATIO 0.3 (1.1-1.5); ALKALINE PHOSPHATASE 176 IU/L (46-116); ANION GAP 2 (8-16); ASPARTATE AMINO TRANSFERASE 29 U/L (10-37); BILIRUBIN,TOTAL 0.1 MG/DL (0.1-1.0); BLOOD UREA NITROGEN 8 MG/DL (7-18); BUN/CREATININE RATIO 15.4 (5.4-32.0); CALCIUM 7.4 MG/DL (8.5-10.1); CHLORIDE 105 MMOL/L (99-107); CREATININE 0.52 MG/DL (0.60-1.10); GLUCOSE 110 MG/DL (70-104); MAGNESIUM 1.4 MG/DL (1.5-2.4); POTASSIUM 3.7 MMOL/L (3.5-5.1); SODIUM 136 MMOL/L (135-145); TOTAL CARBON DIOXIDE 28.7 MMOL/L (24-32); eGFR > 90 ML/MIN
[2021-03-03 04:40] LABS: BASOPHILS % (AUTO) 0.6 % (0-1); EOSINOPHILS # (AUTO) 0.3 X10'3 (0-0.9); EOSINOPHILS % (AUTO) 3.7 % (0-6); HEMATOCRIT 23.1 % (42.0-52.0); HEMOGLOBIN 7.7 g/dl (14.0-17.9); LYMPHOCYTES # (AUTO) 1.7 X10'3 (1.1-4.8); LYMPHOCYTES % (AUTO) 19.2 % (21-51); MEAN CORPUSCULAR HEMOGLOBIN 30.5 PG (27.0-31.0); MEAN CORPUSCULAR HGB CONC 33.3 g/dL (33.0-36.5); MEAN CORPUSCULAR VOLUME 91.8 FL (78-98); MEAN PLATELET VOLUME 8.3 FL (7.4-10.4); MONOCYTES # (AUTO) 1.5 X10'3 (0-0.9); MONOCYTES % (AUTO) 16.7 % (2-12); NEUTROPHILS # (AUTO) 5.3 X10'3 (1.8-7.7); NEUTROPHILS % (AUTO) 59.8 % (42-75); PLATELET COUNT 438 X10'3 (140-440); RED BLOOD COUNT 2.52 X10'6 (4.70-6.10); RED CELL DISTRIBUTION WIDTH 17.8 % (11.5-14.5); WHITE BLOOD COUNT 8.8 X10'3 (4.5-11.0)
[2021-03-03] MEDS: oxyCODONE/APAP 10/325mg tablet PO PRN (05:50)
--- NOTE | 2021-03-03 06:40 | NUR ---
Problems reprioritized. Patient report given, questions answered & plan of care reviewed with Jil MAYS. Addendum: 03/03/21 at 0641 by Suma Aguayo RN Amended: Links added.
--- NOTE | 2021-03-03 07:02 | NUR ---
Patient in room PCU 3023. I have received report from fidencio MAYS and had the opportunity to ask questions and assume patient care.
[2021-03-03 07:04] LABS: ANISOCYTOSIS 1+; PLATELET ESTIMATE INCREASED; POLYCHROMASIA FEW
[2021-03-03 07:05] LABS: POIKILOCYTOSIS FEW; SCHISTOCYTES FEW
--- NOTE | 2021-03-03 09:10 | NUR ---
Patient ok to discharge per MD orders. Patient was transferred to [facility]. All paperwork was completed and report was given to nurse Clement MAYS. [facility] with two staff and nurse assisted via gurney into ambulance. Patient was continued on TPN 70ml/hr and NS 1/2 D5 @100ml/hr. Nurse transported patient with [facility] to [facility]. Paperwork completed and sent. All patient belongings were bagged and sent with patient. Tele was removed and returned. Midline and PICC intact and sent to [facility].
== END 2021-03-03 09:11 | DRG 247 ==
LOC: ER 11:56 → ED HOLD 20:04 → PCU 3S 02-26 08:54
PROVIDERS: ADMIT Internal Medicine; ATTEND Internal Medicine
PROC: 30233N1 Transfusion of Nonautologous Red Blood Cells into Peripheral Vein, Percutaneous Approach (ICD-10-PCS; principal; 2021-02-24)
DX: K56.600 Partial intestinal obstruction, unspecified as to cause (principal); E43 Unspecified severe protein-calorie malnutrition; I82.502 Chronic embolism and thrombosis of unspecified deep veins of left lower extremity; N13.30 Unspecified hydronephrosis; D63.8 Anemia in other chronic diseases classified elsewhere; E87.6 Hypokalemia; I10 Essential (primary) hypertension; I25.10 Atherosclerotic heart disease of native coronary artery without angina pectoris; I73.9 Peripheral vascular disease, unspecified; Z79.01 Long term (current) use of anticoagulants; Z68.24 Body mass index [BMI] 24.0-24.9, adult; Z87.891 Personal history of nicotine dependence; Z93.3 Colostomy status; Z90.49 Acquired absence of other specified parts of digestive tract; Z79.899 Other long term (current) drug therapy
CPT/HCPCS: 36415; 36430; 71045; 74176; 80053; 81001; 82607; 82948; 83540; 83550; 83605; 83735; 84100; 84134; 84145; 84478; 85007; 85008; 85025; 86885; 86900; 86901; 86920; 87040; 87077; 87088; 96360; 97110; 97161; 97530; 99285; G0378; J0696; J1170; J2270; J2405; J3475; J3480; J7030; J7060; P9016; Q9963

== ENCOUNTER 2021-03-21 20:39 | Emergency (ER) | payer MEDICAID ==
[~2021-03-21] VITALS: Ht 170.2 cm; Wt 45.5 kg
[~2021-03-21 20:39] MED LIST changes: -APIX5TAB3 PO; +GABA300C PO; -MAGN64TA10 PO; +MIRT-87 PO; -NITR0.4T48 SL
[2021-03-21] MEDS ORDERED: IOHEXOL 12MG/ML oral solution 500 ML BOTTLE PO ONE (21:00)
[2021-03-21] MEDS ORDERED: normal saline 1000ML IV soln IVB ONE (21:00)
[2021-03-21] MEDS ORDERED: ondansetron/PF 4mg/2ml inj IV ONE (21:50)
[2021-03-21] MEDS ORDERED: iohexol 300mg/ml 100ml inj. ONE (22:14)
[2021-03-21] MEDS ORDERED: metoclopramide 5 mg/ml inj IV ONE (23:55)
[2021-03-21] MEDS ORDERED: morphine 4 MG/ML inj SYRINge IV ONE (23:55)
[2021-03-22] MEDS ORDERED: LIDOcaine 2% 10ml TOPICAL JELLY (Urojet) MM ONE (00:05)
--- NOTE | 2021-03-22 00:21 | NUR ---
PLEASE CALL VIBRA BACK WHEN AVAILABLE WITH UPDATE ON PT
[2021-03-22 01:13] VITALS: BP 129/68
== END 2021-03-22 01:15 ==
LOC: ER 20:39
DX: K56.609 Unspecified intestinal obstruction, unspecified as to partial versus complete obstruction (principal); I25.10 Atherosclerotic heart disease of native coronary artery without angina pectoris; Z88.8 Allergy status to other drugs, medicaments and biological substances; Z79.899 Other long term (current) drug therapy
CPT/HCPCS: 71045; 74177; 96374; 96375; 99285; J2270; J2405; J2765; J7030; Q9967; 96360; 96361